=== PATIENT | female | born 1990 | race Caucasian/White ===

== ENCOUNTER 2024-09-21 09:07 | Outpatient (RCR) | payer OTHER, SELFPAY ==
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
[2024-09-21 11:14] LABS: Hematocrit 36.6 % (37.0-47.0); Hemoglobin 12.2 g/dL (12.0-15.0)
[2024-09-21 11:38] LABS: Glucose 1 Hour PP 50gm Dose 99 mg/dL
[2024-09-21 12:04] LABS: Syphilis IgG/IgM Antibody Non-Reactive (Nonreactive)
[2024-09-21 12:19] LABS: HIV 1/2 Ab P24 Ag Result Negative (Negative)
[2024-09-21] MEDS: RHO(D) IMMUNE GLOBULIN 300 MCG/2 ML SYRINGE IM (16:12)
[2024-09-22 12:08] LABS: Lead, Blood (Adult) <1.0 ug/dL (0.0-3.4)
== END 2024-12-20 23:59 | disposition home or self-care (01) ==
LOC: ANHLAB 09:07
PROVIDERS: PCP Physician Assistant; Visit Provider Advanced Practice Midwife
DX: Z11.4 Encounter for screening for human immunodeficiency virus [HIV] (principal); Z11.3 Encounter for screening for infections with a predominantly sexual mode of transmission; Z29.13 Encounter for prophylactic Rho(D) immune globulin; O36.0130 Maternal care for anti-D [Rh] antibodies, third trimester, not applicable or unspecified; Z3A.00 Weeks of gestation of pregnancy not specified
CPT/HCPCS: 36415; 82947; 83655; 85014; 85018; 85461; 86593; 86703; 86850; 86900; 86901; 90384; 96372; G0432; J2790

== ENCOUNTER 2024-12-13 07:29 | Inpatient (IN) | payer BC, OTHER, SELFPAY ==
[2024-12-13] VITALS (55 sets, daily range): BP systolic 94–151; BP diastolic 62–123; PULSE 52–103; RESP 18–20; TEMP 36.2–37; O2SAT 96–100; BMI 33.8
--- OUTSIDE RECORDS SUMMARY | 2024-12-13 07:44 | XMS_ITS | Clinical Summary ---
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
--- OUTSIDE RECORDS SUMMARY | 2024-12-13 07:45 | XMS_ITS | Data Portability ---
Author Organization [facility] Address [address] [place] [place] [address] [place] [address] Assessment Encounter Date Assessment Date Assessment LastModified by Organization Details LastModified Time 11/21/2024 11/21/2024 Patient is _36__weeks . Discussed plan. Not available 11/21/2024 13:58:01 11/28/2024 11/28/2024 Patient is _37__weeks . Discussed plan. Not available 11/28/2024 11:01:54 12/05/2024 12/05/2024 Patient is _38__weeks . Discussed plan. Not available 12/05/2024 11:04:10 12/12/2024 12/12/2024 Patient is _39__weeks . Discussed plan. Not available 12/12/2024 10:48:29 Plan of Treatment Reminders Order Date Submit Date Provider Last Modified By Organization Details Last Modified Time Details Appointments INDUCTION 2024 05:00A M Stacy Dotson CNM Not available Not available Not available Lab None recorded. Referral None recorded. Procedures None recorded. Surgeries None recorded. Imaging non-stres s test 2024 025 [email or web address], [address], [place], [address], 12/05/2024 11:37:44 Medication Orders None recorded. Patient TargetsNo targets recorded. Patient InstructionsNo instructions recorded. Reason for Referral None Reported. Results Created Date Observation Date Name Description Value Unit Range Abnormal Flag Note LastModifiedBy Organization Detail LastModifiedTime 11/02/1911/01/2024 CBC W/DIF F WBC 10.9 10'3/ uL 3.5-10 .5 high Not Available [facility] (Lab) [address], [place], [address], 11/02/2024 07:00:59 11/02/19 25 11/01/2024 CBC W/DIF F RBC 4.20 10'6/ uL (based on docume nted legal sex) 3.80-5 .20 Not Available [facility] (Lab) [address], [place], [address], 11/02/2024 07:00:59 11/02/1911/01/2024 CBC W/DIF F HGB 12.4 g/dL (based on docume nted legal sex) 11.6-1 5.4 Not Available [facility] (Lab) [address], [place], [address], 11/02/2024 07:00:59 11/02/1911/01/2024 CBC W/DIF F HCT 38.3 % (based on docume nted legal sex) 34.0-4 5.0 Not Available [facility] (Lab) [address], [place], [address], 11/02/2024 07:00:59 11/02/1911/01/2024 CBC W/DIF F MCV 91.2 fL 80.0-9 9.0 Not Available [facility] (Lab) [address], [place], [address], 11/02/2024 07:00:59 11/02/1911/01/2024 CBC W/DIF F MCH 29.5 pg 27.0-3 4.0 Not Available [facility] (Lab) [address], [place], [address], 11/02/2024 07:00:59 11/02/1911/01/2024 CBC W/DIF F MCHC 32.4 g/dL 32.0-3 5.5 Not Available [facility] (Lab) [address], [place], [address], 11/02/2024 07:00:59 11/02/1911/01/2024 CBC W/DIF F RDW 13.0 % 11.0-1 5.0 Not Available [facility] (Lab) [address], [place], [address], 11/02/2024 07:00:59 11/02/1911/01/2024 CBC W/DIF F plt 176 10'3/ uL 150-40 0 Not Available [facility] (Lab) [address], [place], [address], 11/02/2024 07:00:59 11/02/1911/01/2024 CBC W/DIF F MPV 11.9 fL 8.8-12 .1 Not Available [facility] (Lab) [address], [place], [address], 11/02/2024 07:00:59 11/02/1911/01/2024 CBC W/DIF F NRBC's 0.0 % 0.0 Not Available [facility] (Lab) [address], [place], [address], 11/02/2024 07:00:59 11/02/1911/01/2024 CBC W/DIF F absolute NRBCs 0.0 10'3/ uL no refere nce range establ ished Not Available [facility] (Lab) [address], [place], [address], 11/02/2024 07:00:59 11/02/1911/01/2024 CBC W/DIF F neutrophils 72.5 % 34.0-7 3.0 Not Available [facility] (Lab) [address], [place], [address], 11/02/2024 07:00:59 11/02/19 25 11/01/2024 CBC W/DIF F lymphocytes 20.6 % 15.0-5 0.0 Not Available [facility] (Lab) [address] [facility], [place], [address], 11/02/2024 07:00:59 11/02/1911/01/2024 CBC W/DIF F monocytes 5.9 % 1.0-15 .0 Not Available [facility] (Lab) [address] [facility], [place], [address], 11/02/2024 07:00:59 11/02/1911/01/2024 CBC W/DIF F eosinophils 0.4 % 0.0-8. 0 Not Available [facility] (Lab) [address] [facility], [place], [address], 11/02/2024 07:00:59 11/02/1911/01/2024 CBC W/DIF F basophils 0.3 % 0.0-2. 0 Not Available [facility] (Lab) [address] [facility], [place], [address], 11/02/2024 07:00:59 11/02/1911/01/2024 CBC W/DIF F immature granulocytes 0.3 % no define d refere nce range Immat ure Granu locyt es (IG) repre sents autom ated enume ratio n of Metam yeloc ytes, Myelo cytes and Promy elocy jade when IG is < 5%. Blast s are not inclu ded in IG and repor earl separ ately if prese nt. Not Available [facility] (Lab) [address] [facility], [place], [address], 11/02/2024 07:00:59 11/02/1911/01/2024 CBC W/DIF F absolute neutrophils 7.9 10'3/ uL 1.5-8. 0 Not Available [facility] (Lab) [address] [facility], [place], [address], 11/02/2024 07:00:59 11/02/1911/01/2024 CBC W/DIF F absolute lymphocytes 2.2 10'3/ uL 1.0-4. 0 Not Available [facility] (Lab) [address] , [place], [address], 11/02/2024 07:00:59 11/02/1911/01/2024 CBC W/DIF F absolute monocytes 0.6 10'3/ uL 0.2-1. 0 Not Available [facility] (Lab) [address], [place], [address], 11/02/2024 07:00:59 11/02/1911/01/2024 CBC W/DIF F absolute eosinophils 0.0 10'3/ uL 0.0-0. 6 Not Available [facility] (Lab) [address], [place], [address], 11/02/2024 07:00:59 11/02/1911/01/2024 CBC W/DIF F absolute basophils 0.0 10'3/ uL 0.0-0. 3 Not Available [facility] (Lab) [address] [facility], [place], [address], 11/02/2024 07:00:59 11/02/1911/01/2024 CBC W/DIF F absolute immature granulocytes 0.0 10'3/ uL 0.00-0 .10 Refer ence range s for nonbi nary/ inter sex or unspe cifie d gende r patie nts have not been estab lishe d. Pleas e refer to the follo wing table for range s estab lishe d for cisge nder patie nts and evalu ate in the clini bailey blanca xt of the indiv idual patie nt: https ://milan rodriguez book. nm.or g/gen derx Not Available [facility] (Lab) [address], [place], [address], 11/02/2024 07:00:59 11/17/1911/16/2024 CULTU RE: GROUP B STREP SCREE N, REFLE X SUSCE PTIBI LITY result report SEE RESULT S BELOW Test: Cultu re: Group B Strep , Refle x Susce ptibi lity ([facility]/ [facility]/K H/V[facility] ) Speci men Sourc e: Vagin a/Rec candelario Speci men Type: Vagin al/Re ctal Speci men Date: 2024 0957 Resul t Date: 2024 1413 Resul t Statu s: Final resul t Abnor mal: No Resul ting Lab: [facility] [address] [facility] [address] Tel: CULTU RE ----- ----- ----- --- No Group B strep isola earl at 2 days (eugenio ctive broth enhan cemen t) Not Available [facility] (Lab) [address] [facility], [place], [address], 11/19/2024 15:16:24 11/22/1911/21/2024 CBC W/DIF F WBC 10.2 10'3/ uL 3.5-10 .5 Not Available [facility] (Lab) [address] [place], [address], 11/22/2024 04:31:46 11/22/1911/21/2024 CBC W/DIF F RBC 4.07 10'6/ uL (based on docume nted legal sex) 3.80-5 .20 Not Available [facility] (Lab) [address] [place], [address], 11/22/2024 04:31:46 11/22/1911/21/2024 CBC W/DIF F HGB 12.0 g/dL (based on docume nted legal sex) 11.6-1 5.4 Not Available [facility] (Lab) [address] [place], [address], 11/22/2024 04:31:46 11/22/19 11/21/2024 CBC W/DIF F HCT 36.7 % (based on docume nted legal sex) 34.0-4 5.0 Not Available [facility] (Lab) [address], [place], [address], 11/22/2024 04:31:46 11/22/19 25 11/21/2024 CBC W/DIF F MCV 90.2 fL 80.0-9 9.0 Not Available [facility] (Lab) [address], [place], [address], 11/22/2024 04:31:46 11/22/1911/21/2024 CBC W/DIF F MCH 29.5 pg 27.0-3 4.0 Not Available [facility] (Lab) [address], [place], [address], 11/22/2024 04:31:46 11/22/19 25 11/21/2024 CBC W/DIF F MCHC 32.7 g/dL 32.0-3 5.5 Not Available [facility] (Lab) [address], [place], [address], 11/22/2024 04:31:46 11/22/19 25 11/21/2024 CBC W/DIF F RDW 13.0 % 11.0-1 5.0 Not Available [facility] (Lab) [address], [place], [address], 11/22/2024 04:31:46 11/22/1911/21/2024 CBC W/DIF F plt 173 10'3/ uL 150-40 0 Not Available [facility] (Lab) [address], [place], [address], 11/22/2024 04:31:46 11/22/19 25 11/21/2024 CBC W/DIF F MPV 12.3 fL 8.8-12 .1 high Not Available [facility] (Lab) [address], [place], [address], 11/22/2024 04:31:46 11/22/19 25 11/21/2024 CBC W/DIF F NRBC's 0.0 % 0.0 Not Available [facility] (Lab) [address] [facility], [place], [address], 11/22/2024 04:31:46 11/22/19 25 11/21/2024 CBC W/DIF F absolute NRBCs 0.0 10'3/ uL no refere nce range establ ished Not Available [facility] (Lab) [address] [facility], [place], [address], 11/22/2024 04:31:46 11/22/19 25 11/21/2024 CBC W/DIF F neutrophils 70.4 % 34.0-7 3.0 Not Available [facility] (Lab) [address] [facility], [place], [address], 11/22/2024 04:31:46 11/22/19 25 11/21/2024 CBC W/DIF F lymphocytes 22.5 % 15.0-5 0.0 Not Available [facility] (Lab) [address] [facility], [place], [address], 11/22/2024 04:31:46 11/22/19 25 11/21/2024 CBC W/DIF F monocytes 6.0 % 1.0-15 .0 Not Available [facility] (Lab) [address] [facility], [place], [address], 11/22/2024 04:31:46 11/22/19 25 11/21/2024 CBC W/DIF F eosinophils 0.5 % 0.0-8. 0 Not Available [facility] (Lab) [address] [facility], [place], [address], 11/22/2024 04:31:46 11/22/19 25 11/21/2024 CBC W/DIF F basophils 0.2 % 0.0-2. 0 Not Available [facility] (Lab) [address] [facility], [place], [address], 11/22/2024 04:31:46 11/22/1911/21/2024 CBC W/DIF F immature granulocytes 0.4 % no define d refere nce range Immat ure Granu locyt es (IG) repre sents autom ated enume ratio n of Metam yeloc ytes, Myelo cytes and Promy elocy jade when IG is < 5%. Blast s are not inclu ded in IG and repor earl separ ately if prese nt. Not Available [facility] (Lab) [address] [facility], [place], [address], 11/22/2024 04:31:46 11/22/19 25 11/21/2024 CBC W/DIF F absolute neutrophils 7.2 10'3/ uL 1.5-8. 0 Not Available [facility] (Lab) [address] [facility], [place], [address], 11/22/2024 04:31:46 11/22/19 25 11/21/2024 CBC W/DIF F absolute lymphocytes 2.3 10'3/ uL 1.0-4. 0 Not Available [facility] (Lab) [address] [facility], [place], [address], 11/22/2024 04:31:46 11/22/19 25 11/21/2024 CBC W/DIF F absolute monocytes 0.6 10'3/ uL 0.2-1. 0 Not Available [facility] (Lab) [address] [facility], [place], [address], 11/22/2024 04:31:46 11/22/19 25 11/21/2024 CBC W/DIF F absolute eosinophils 0.1 10'3/ uL 0.0-0. 6 Not Available [facility] (Lab) [address] [facility], [place], [address], 11/22/2024 04:31:46 11/22/19 25 11/21/2024 CBC W/DIF F absolute basophils 0.0 10'3/ uL 0.0-0. 3 Not Available [facility] (Lab) [address], [place], [address], 11/22/2024 04:31:46 11/22/19 25 11/21/2024 CBC W/DIF F absolute immature granulocytes 0.0 10'3/ uL 0.00-0 .10 Refer ence range s for nonbi nary/ inter sex or unspe cifie d gende r patie nts have not been estab lishe d. Pleas e refer to the follo wing table for range s estab lishe d for cisge nder patie nts and evalu ate in the clini bailey blanca xt of the indiv idual patie nt: https ://milan rodriguez book. nm.or g/gen derx Not Available [facility] (Lab) [address], [place], [address], 11/22/2024 04:31:46 12/06/1912/05/2024 CBC W/DIF F WBC 9.4 10'3/ uL 3.5-10 .5 Not Available [facility] (Lab) [address], [place], [address], 12/06/2024 04:30:16 12/06/19 25 12/05/2024 CBC W/DIF F RBC 4.21 10'6/ uL (based on docume nted legal sex) 3.80-5 .20 Not Available [facility] (Lab) [address], [place], [address], 12/06/2024 04:30:16 12/06/19 25 12/05/2024 CBC W/DIF F HGB 12.1 g/dL (based on docume nted legal sex) 11.6-1 5.4 Not Available [facility] (Lab) [address], [place], [address], 12/06/2024 04:30:16 12/06/19 25 12/05/2024 CBC W/DIF F HCT 38.3 % (based on docume nted legal sex) 34.0-4 5.0 Not Available [facility] (Lab) [address], [place], [address], 12/06/2024 04:30:16 12/06/19 25 12/05/2024 CBC W/DIF F MCV 91.0 fL 80.0-9 9.0 Not Available [facility] (Lab) [address], [place], [address], 12/06/2024 04:30:16 12/06/19 25 12/05/2024 CBC W/DIF F MCH 28.7 pg 27.0-3 4.0 Not Available [facility] (Lab) [address], [place], [address], 12/06/2024 04:30:16 12/06/19 25 12/05/2024 CBC W/DIF F MCHC 31.6 g/dL 32.0-3 5.5 low Not Available [facility] (Lab) [address], [place], [address], 12/06/2024 04:30:16 12/06/19 25 12/05/2024 CBC W/DIF F RDW 13.0 % 11.0-1 5.0 Not Available [facility] (Lab) [address], [place], [address], 12/06/2024 04:30:16 12/06/19 25 12/05/2024 CBC W/DIF F plt 165 10'3/ uL 150-40 0 Not Available [facility] (Lab) [address], [place], [address], 12/06/2024 04:30:16 12/06/19 25 12/05/2024 CBC W/DIF F MPV 12.0 fL 8.8-12 .1 Not Available [facility] (Lab) [address], [place], [address], 12/06/2024 04:30:16 12/06/19 25 12/05/2024 CBC W/DIF F NRBC's 0.0 % 0.0 Not Available [facility] (Lab) [address] [facility], [place], [address], 12/06/2024 04:30:16 12/06/19 25 12/05/2024 CBC W/DIF F absolute NRBCs 0.0 10'3/ uL no refere nce range establ ished Not Available [facility] (Lab) [address] [facility], [place], [address], 12/06/2024 04:30:16 12/06/19 25 12/05/2024 CBC W/DIF F neutrophils 67.7 % 34.0-7 3.0 Not Available [facility] (Lab) [address] [facility], [place], [address], 12/06/2024 04:30:16 12/06/19 25 12/05/2024 CBC W/DIF F lymphocytes 24.6 % 15.0-5 0.0 Not Available [facility] (Lab) [address] [facility], [place], [address], 12/06/2024 04:30:16 12/06/19 25 12/05/2024 CBC W/DIF F monocytes 6.6 % 1.0-15 .0 Not Available [facility] (Lab) [address] [facility], [place], [address], 12/06/2024 04:30:16 12/06/19 25 12/05/2024 CBC W/DIF F eosinophils 0.6 % 0.0-8. 0 Not Available [facility] (Lab) [address] [facility], [place], [address], 12/06/2024 04:30:16 12/06/19 25 12/05/2024 CBC W/DIF F basophils 0.3 % 0.0-2. 0 Not Available [facility] (Lab) [address] [facility], [place], [address], 12/06/2024 04:30:16 12/06/19 25 12/05/2024 CBC W/DIF F immature granulocytes 0.2 % no define d refere nce range Immat ure Granu locyt es (IG) repre sents autom ated enume ratio n of Metam yeloc ytes, Myelo cytes and Promy elocy jade when IG is < 5%. Blast s are not inclu ded in IG and repor earl separ ately if prese nt. Not Available [facility] (Lab) [address] [facility], [place], [address], 12/06/2024 04:30:16 12/06/19 25 12/05/2024 CBC W/DIF F absolute neutrophils 6.4 10'3/ uL 1.5-8. 0 Not Available [facility] (Lab) [address] [facility], [place], [address], 12/06/2024 04:30:16 12/06/19 25 12/05/2024 CBC W/DIF F absolute lymphocytes 2.3 10'3/ uL 1.0-4. 0 Not Available [facility] (Lab) [address] [facility], [place], [address], 12/06/2024 04:30:16 12/06/19 25 12/05/2024 CBC W/DIF F absolute monocytes 0.6 10'3/ uL 0.2-1. 0 Not Available [facility] (Lab) [address] [facility], [place], [address], 12/06/2024 04:30:16 12/06/19 25 12/05/2024 CBC W/DIF F absolute eosinophils 0.1 10'3/ uL 0.0-0. 6 Not Available [facility] (Lab) [address] [facility], [place], [address], 12/06/2024 04:30:16 12/06/19 25 12/05/2024 CBC W/DIF F absolute basophils 0.0 10'3/ uL 0.0-0. 3 Not Available [facility] (Lab) [address] [facility], [place], [address], 12/06/2024 04:30:16 12/06/19 25 12/05/2024 CBC W/DIF F absolute immature granulocytes 0.0 10'3/ uL 0.00-0 .10 Refer ence range s for nonbi nary/ inter sex or unspe cifie d gende r patie nts have not been estab lishe d. Pleas e [facility] for range s estab lishe d for cisge nder patie nts and evalu ate in the clini bailey blanca xt of the indiv idual patie nt: https ://milan rodriguez book. nm.or g/gen derx Not Available [facility] (Lab) [address] [facility], [place], [address], 12/06/2024 04:30:16 12/06/19 25 12/05/2024 CMP(C OMPRE HENSI VE METAB OLIC PANEL ) sodium 138 mmol/ L 133-14 6 Not Available [facility] (Lab) [address] [facility], [place], [address], 12/06/2024 04:30:17 12/06/19 25 12/05/2024 CMP(C OMPRE HENSI VE METAB OLIC PANEL ) potassium 3.7 mmol/ L 3.5-5. 1 Not Available [facility] (Lab) [address] [facility], [place], [address], 12/06/2024 04:30:17 12/06/19 25 12/05/2024 CMP(C OMPRE HENSI VE METAB OLIC PANEL ) chloride 105 mmol/ L 98-107 Not Available [facility] (Lab) [address] [facility], [place], [address], 12/06/2024 04:30:17 12/06/19 25 12/05/2024 CMP(C OMPRE HENSI VE METAB OLIC PANEL ) carbon dioxide 23 mmol/ L 21-31 Not Available [facility] (Lab) [address] [facility], [place], [address], 12/06/2024 04:30:17 12/06/19 25 12/05/2024 CMP(C OMPRE HENSI VE METAB OLIC PANEL ) anion gap 10 mmol/ L 4-13 Not Available [facility] (Lab) [address] [facility], [place], [address], 12/06/2024 04:30:17 12/06/19 25 12/05/2024 CMP(C OMPRE HENSI VE METAB OLIC PANEL ) blood urea nitrogen 5 mg/dL 7-25 low Not Available [facility] (Lab) [address] [facility], [place], [address], 12/06/2024 04:30:17 12/06/19 25 12/05/2024 CMP(C OMPRE HENSI VE METAB OLIC PANEL ) creatinine 0.61 mg/dL 0.60-1 .30 Not Available [facility] (Lab) [address] [facility], [place], [address], 12/06/2024 04:30:17 12/06/1912/05/2024 CMP(C OMPRE HENSI VE METAB OLIC PANEL ) egfrcr (CKD-epi 2020) >90 mL/mi n/1.7 3_m2 >=60 Not Available [facility] (Lab) [address] [place], [address], 12/06/2024 04:30:17 12/06/19 25 12/05/2024 CMP(C OMPRE HENSI VE METAB OLIC PANEL ) calcium 8.6 mg/dL 8.3-10 .5 Not Available [facility] (Lab) [address] [place], [address], 12/06/2024 04:30:17 12/06/19 25 12/05/2024 CMP(C OMPRE HENSI VE METAB OLIC PANEL ) glucose 63 mg/dL 70-100 low Not Available [facility] (Lab) [address] [place], [address], 12/06/2024 04:30:17 12/06/19 25 12/05/2024 CMP(C OMPRE HENSI VE METAB OLIC PANEL ) protein, total 5.8 g/dL 6.4-8. 3 low Not Available [facility] (Lab) [address] [facility], [place], [address], 12/06/2024 04:30:17 12/06/19 25 12/05/2024 CMP(C OMPRE HENSI VE METAB OLIC PANEL ) albumin 3.3 g/dL 3.5-5. 0 low Not Available [facility] (Lab) [address] [facility], [place], [address], 12/06/2024 04:30:17 12/06/19 25 12/05/2024 CMP(C OMPRE HENSI VE METAB OLIC PANEL ) ALT 9 units /L 9-43 Not Available [facility] (Lab) [address] [facility], [place], [address], 12/06/2024 04:30:17 12/06/1912/05/2024 CMP(C OMPRE HENSI VE METAB OLIC PANEL ) alkaline phosphatase 151 units /L 34-104 high Not Available [facility] (Lab) [address] [facility], [place], [address], 12/06/2024 04:30:17 12/06/19 25 12/05/2024 CMP(C OMPRE HENSI VE METAB OLIC PANEL ) AST 15 units /L 13-39 Not Available [facility] (Lab) [address] [facility], [place], [address], 12/06/2024 04:30:17 12/06/19 25 12/05/2024 CMP(C OMPRE HENSI VE METAB OLIC PANEL ) bilirubin, total 0.4 mg/dL 0.2-1. 2 Not Available [facility] (Lab) [address] [place], [address], 12/06/2024 04:30:17 12/06/19 25 12/05/2024 URIC ACID uric acid 5.5 mg/dL 2.3-6. 6 Not Available [facility] (Lab) [address] [facility], [place], [address], 12/06/2024 04:30:17 12/06/19 25 12/05/2024 PROTE IN/CR EATIN INE RATIO , URINE creatinine, urine 52.2 mg/dL R-No refer ence range estab lishe d for this assay Not Available [facility] (Lab) [address] [facility], [place], [address], 12/06/2024 05:07:25 12/06/19 25 12/05/2024 PROTE IN/CR EATIN INE RATIO , URINE protein, urine 7 mg/dL R-No refer ence range estab lishe d for this assay Not Available [facility] (Lab) [address] [facility], [place], [address], 12/06/2024 05:07:25 12/06/19 25 12/05/2024 PROTE IN/CR EATIN INE RATIO , URINE protein/crea tinine ratio, urine 0.13 . No Refer ence Range avail able for Rando m Urine s. A prote in to creat inine ratio of >=0.1 9 is a good predi ctor of signi fican t prote inuri a. A level of <0.14 can rule out signi fican t prote inuri a. Not Available [facility] (Lab) [address] [facility], [place], [address], 12/06/2024 05:07:25 12/06/1912/05/2024 non-s tress test No observ ation record ed. [email or web address] [address], [place], [address], 12/05/2024 11:45:15 12/06/19 non-s tress test No observ ation record ed. [email or web address] [address], [place], [address], 12/05/2024 12:17:27 Result Notes None recorded. Problems Name Problem SNOMED Code Status Onset Date Resolution Date Notes Provider Name and Address Organization Details Recorded Time Herpes simplex type 1 infection 833479589 Active 06/12 blood work neg HSV Jazzmine Pereyra [facility], [facility] 5 13:35:11 Mixed anxiety and depressive disorder 536070383 Active 2024 Diandra Harper null, [facility] 5 08:56:47 15532667 Active 2024 Diandra Harper [facility], [facility] 5 08:56:16 Herpes simplex type 1 infection 750641101 Active 06/12 blood work neg HSV Jazzmine Pereyra [facility], [facility] 5 13:35:11 Mixed anxiety and depressive disorder 113338246 Active 2024 Diandra Harper [facility], [facility] 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 5 13:53:57 Thrombocytope nelson disorder 303174807 Active 2024 PLT 148 rpt 4wks Jazzmine Pereyra [facility], [facility] 5 13:53:56 Problem Notes None recorded. Procedures Surgical History Date Name Laterality Status Provider Name and Address Organization Details Recorded Time 4 Date of Last Pap Smear completed Diandra Harper [facility] 06/12/2024 13:16:14 0 extraction of wisdom tooth completed Diandra Harper [facility] 06/13/2024 08:54:53 Imaging Results None recorded. Procedure Notes None recorded. Medical Equipment None Reported. Allergies Allergen ID Allergen Name Allergen Category Reaction Reaction Severity Criticality Documentation Date Start Date Code Code System Note Provider Name and Address Organization Details Recorded Time 15875 Substance with sulfonami de structure and antibacte rial mechanism of action (substanc e) medicatio n rash moderate Not available 06/12/2024 [id number] SNOMED Diandra rolon [facility] 13:16:14 Medications Name Sig Start Date Stop Date Status Note LastModified by Organization Details LastModified Time ondansetron 4 mg disintegrat ing tablet DISSOLVE 1 TABLET ON THE TONGUE FOUR TIMES DAILY NEEDED FOR NAUSEA OR VOMITING 07/04 completed Not Available Not Available Not Available escitalopra m 10 mg tablet TAKE 1 TABLET BY MOUTH EVERY DAY active Not Available Not Available No t Available escitalopra m 5 mg tablet TAKE 1 TABLET BY MOUTH EVERY DAY 08/22 completed Not Available Not Available Not Available 08/22 completed Not Available Not Available Not Available Zofran (base) 06/12 completed Not Available Not Available Not Available Se- 19 29 mg iron-1 mg tablet TAKE 1 TABLET BY MOUTH DAILY active Not Available Not Available No t Available Vitals Date Recorded Body height Body mass index (BMI) Body weight Systolic And Diastolic Provider Name and Address Organization Details Last Updated DateTime 11/21/2024 170.18 cm 34.8 kg/m2 541806.51 g 114/74 mm[Hg] Blanka [facility] 11/21/2024 11:34:51 Date Recorded Body height Body mass index (BMI) Body weight Systolic And Diastolic Provider Name and Address Organization Details Last Updated DateTime 11/28/2024 170.18 cm 34.8 kg/m2 142051.51 g 134/88 mm[Hg] Blanka [facility] 11/28/2024 10:51:03 Date Recorded Body height Body mass index (BMI) Body weight Systolic And Diastolic Provider Name and Address Organization Details Last Updated DateTime 12/05/2024 170.18 cm 34.8 kg/m2 460314.51 g 141/80 mm[Hg] Blanka Maribell [facility] 12/05/2024 10:50:48 Date Recorded Body weight Systolic And Diastolic Provider Name and Address Organization Details Last Updated DateTime 12/12/2024 410534.53134 g 118/81 mm[Hg] Imelda Sarkar [facility] 12/12/2024 10:48:32 Social History Question Answer Notes LastModified by Organizat ion Details LastModified Time Tobacco Smoking Status Former Smoker Diandra Meredith null, [facility] 06/13/2024 08:54:00 Do You Have An Advance Directive? No [email or web address] Information not available 06/12/2024 If You Are , What Was Your Level Of Alcohol Consumption Prior To ? Occasional [email or web address] Information not available 06/13/2024 Are You Blind Or Do You Have Difficulty Seeing? No [email or web address] Information not available 06/12/2024 What Is Your Level Of Caffeine Consumption? Occasional [email or web address] Information not available 06/12/2024 How Much Tobacco Do You Chew? None Information not available 06/12/2024 In The 14 Days Before Symptom Onset, Have You Had Close Contact With A Laboratory-confir med COVID-19 While That Case Was Ill? No [email or web address] Information not available 06/12/2024 In The 14 Days Before Symptom Onset, Have You Had Close Contact With A Person Who Is Under Investigation For COVID-19 While That Person Was Ill? No [email or web address] Information not available 06/12/2024 Have You Been To An Area Known To Be High Risk For COVID-19? No Information not available 06/12/2024 Are You Deaf Or Do You Have Serious Difficulty Hearing? No [email or web address] Information not available 06/12/2024 What Type Of Diet Are You Following? REGULAR [email or web address] Information not available 06/12/2024 What Is The Highest Grade Or Level Of School You Have Completed Or The Highest Degree You Have Received? [id number] [email or web address] Information not available 06/12/2024 Are There Any Guns Present In Your Home? Yes Information not available 06/12/2024 Do You Use Protection During Sex? No Information not available 06/12/2024 Do You Use Your Seat Belt Or Car Seat Routinely? Yes [email or web address] Information not available 06/12/2024 Do You Have Smoke And Carbon Monoxide Detectors In Your Home? Yes [email or web address] Information not available 06/12/2024 How Much Tobacco Do You Smoke? No [email or web address] Information not available 06/12/2024 Do You Use Sunscreen Routinely? Yes [email or web address] Information not available 06/12/2024 Have You Used IV Drugs? No [email or web address] Information not available 06/12/2024 Do You Have Difficulty Walking Or Climbing Stairs? No [email or web address] Information not available 06/13/2024 Sex: Unknown Functional Status Question Answer Note LastModified by Organizat ion Details LastModified Time Do you use any illicit or recreational drugs? No marijauna [email or web address] Information not available 06/13/2024 Do you or have you ever used any other forms of tobacco or nicotine? Yes Information not available 06/13/2024 What is your level of alcohol consumption? None [email or web address] Information not available 06/12/2024 Are you able to walk independently without assistance or assistive devices? YESWOREST [email or web address] Information not available 06/12/2024 Are you able to care for yourself independently? 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 No [email or web address] Information not available 06/13/2024 Do you or have you ever used e-cigarettes or vape? Former user of electronic cigarettes [email or web address] Information not available 06/13/2024 What is your exercise level? Moderate [email or web address] Information not available 06/12/2024 Mental Status Question Answer Note LastModified by Organization D etails LastModified Time Do you feel stressed (tense, restless, nervous, or anxious, or unable to sleep at night)? [id number] [email or web address] Information not available 06/12/2024 Family History Relationship Description Onset Age of this Age Resolved Age Notes LastModified by Organization Details LastModified Time Mother Asthma [email or web address] Not available 06/12/2024 13:16:14 Maternal Uncle Seizure disorder [email or web address] Not available 08/06 20:22:41 Medical History Condition Response Other N Blood Transfusion N Dermatologic Disorders N Gestational Diabetes N Anxiety Disorder Y Autoimmune disease N Arthritis N Polyps N Infertility N Acid Reflux (GERD) N Cancer N Varicosities N Stroke N Neurologic/Epilepsy N Fibromyalgia N Headaches N Kidney Disease N Heart Problems N Kidney or Bladder Problems N Eating Disorder N Art (IVF or FET) N Hepatitis/Liver Disease N No Past Medical History N Urinary Tract Infection N Asthma Y Trauma/Violence N Thrombophilias N Allergies (Food, seasonal, environmental ) Y Breast Cancer N Drug/Latex Allergies/Reactions N Lung Disease N Defects or Inherited Disease N Breast Problem N Hematologic disorders N Anesthesia Complications N History of STI Y Deep Vein Thrombosis N Polycystic ovary syndrome N History of abnormal pap N Endometriosis N High Cholesterol N Thyroid Problems N GI Problems N Anemia N Psychiatric Illness N Ovarian Cancer N Diabetes N Pulmonary (TB, Asthma) N Eczema N Abuse/Domestic Violence N Depression/ depression Y Heart Disease N Pre-Eclampsia N Hypertension N Osteoporosis N Gynecological History Statement/Question Response Abnormal Pap N Date of Last Mammogram Date of LMP 03/09/2024 On BCP's at Conception? N N Was last menstrual period normal Y STIs/STDs Y HPV Vaccine N Duration of Flow (days) 3 Current Control Method Age at First Child 24 Date of Last Colonoscopy Frequency of Cycle (Q days) 4 Sexually Active? Y Date of DEXA bone scan Age of first menstrual cycle 14 Date of Last Pap Smear 11/24/2023 Sexual Problems? N LMP Definite N Obstetrics History GPAL:G 4 P 2 0 1 1 Type Value Full Term 2 Spontaneous 1 Living 1 Total 4 Past Encounters Encounter ID Performer Location Encounter Start Date Encounter Closed Date Diagnosis/Indication Diagnosis SNOMED-CT Code Diagnosis ICD10 Code Diagnosis IMO Codes Diagnosis Note [id number] Vik Damian MD [facility] [address] [address] 06/12/2024 11:44:31 06/12/2024 12:43:55 screening for malformation 007228249 Z36.3 Z3A.13 [id number] [facility] [address],[place] [address] 06/12/2024 11:44:46 06/13/2024 09:49:54 state of fetus 18837506 Z34.90 [id number] Bacterial disease screening 010731214 Z11.8 15357 Gestation period, 13 weeks 27072723 Z3A.13 5754527 screening 2437 58606 Z36.89 Infection screening 2437 76606 Z11.3 7380032 Genetic in vestigation procedure 36050866 Z31.430 Amenorrhea 01319990 N91. 2 [id number] Stacy Dotson [facility] [address],[place] [address] 07/04/2024 09:53:48 07/04/2024 20:25:59 [id number] [facility] [address],[place] [address] 07/06/2024 09:17:22 07/06/2024 12:36:54 Gestation period, 18 weeks 68370325 Z3A.18 0732023 [id number] Vik Damian MD [facility] [address],[place] [address] 07/26/2024 09:31:22 07/26/2024 13:26:46 screening for malformation 010092419 Z36.3 Z3A.20 [id number] [facility] [address],[place] [address] 07/27/2024 10:24:45 07/27/2024 12:30:06 Gestation period, 21 weeks 15940017 Z3A.21 [id number] [id number] Vik Damian MD [facility] [address],[place] [address] 08/22/2024 10:29:59 08/22/2024 11:29:11 Follow-up encounter 480446249 Z36.2 Z3A.23 [id number] [facility] [address],[place] [address] 08/22/2024 10:31:50 08/22/2024 12:07:41 Thrombocytopenic disorder 675076374 D69.6 64983 Gestation period, 23 weeks 90645147 Z3A.23 8264015 [id number] Stacy Dotson [facility] [address],[place] [address] 09/21/2024 09:19:22 09/21/2024 10:19:31 Gestation period, 28 weeks 00560785 Z3A.28 3390452 [id number] NIGEL LIMON MD [facility] [address],[place] [address] 10/05/2024 12:35:12 10/05/2024 13:23:42 Thrombocytopenic disorder 575656483 D69.6 52739 - Plt 148 at new OB visit- repeat today Gestation period, 29 weeks 75807850 Z3A.29 5567595 [id number] Vik Damian MD [facility] [address],[place] [address] 10/19/2024 09:51:14 10/19/2024 10:20:40 Observational assessment 664992964 Z03.74 Z3A.31 8334023 [id number] [facility] [address],[place] [address] 10/19/2024 09:51:43 10/19/2024 10:44:34 Gestation period, 31 weeks 40470444 Z3A.31 8551472 [id number] Stacy Dotson [facility] [address],[place] [address] 11/01/2024 10:55:20 11/01/2024 11:19:22 Gestation period, 33 weeks 60955524 Z3A.33 5017394 [id number] Stacy Dotson [facility] [address],[place] [address] 11/16/2024 09:42:43 11/16/2024 10:36:56 Gestation period, 35 weeks 86202043 Z3A.35 7780351 [id number] Stacy Dotson [facility] [address],[place] [address] 11/21/2024 11:05:47 11/21/2024 14:06:10 Gestation period, 36 weeks 35840670 Z3A.36 4815587 [id number] Stacy Dotson [facility] [address],[place] [address] 11/28/2024 10:40:48 11/28/2024 13:53:50 Gestation period, 37 weeks 67943610 Z3A.37 0431210 [id number] Stacy Dotson [place] [address],[place] [address] 12/05/2024 10:41:20 12/05/2024 11:08:52 Gestation period, 38 weeks 46956112 Z3A.38 3225164 [id number] Stacy Dotson [facility] [address],[place] [address] 12/05/2024 10:56:56 12/05/2024 11:37:44 Reduced movement 317202036 O36.8130 [id number] [id number] Stacy Dotson [place] [address],[place] [address] 12/12/2024 10:37:17 12/12/2024 11:17:25 Gestation period, 39 weeks 22325722 Z3A.39 [id number] Health Concerns Section Related Observation LastModified by Organization Detai ls LastModified Time None Recorded Concern Status LastModified by Organization Details LastModified Time None Recorded Advance Directives Directive N: Payers Insurance Date Sequence Insurance Name Policy Number Policy Ruiz Covered Member ID Ruiz Member ID Guarantor Name 06/15/2024 1 [facility] [id number] Sonido Snow [id number] Milagros Snow 12/09/2024 1 [facility] [id number] Milagros Snow [id number] Milagros Snow 08/29/2024 1 *SELF PAY* Porfirio Snow 12/09/2024 2 [id number] Milagros Snow [id number] Milagros Snow 10/05/2024 1 *SELF PAY* Porfirio Snow Notes Date Note Type Note Provider Name and Address Organization Details Recorded Time 11/21/2024 text/html Generic HPI TemplateReported by Patient Stacy Dotson CNM [address], [place], [address], [facility] 11/21/2024 13:58:18 11/28/2024 text/html Generic HPI TemplateReported by Patient Stacy Dotson CNM [address], [place], [address], [facility] 11/28/2024 13:42:00 12/05/2024 text/html Generic HPI TemplateReported by Patient Stacy Dotson CNM [address], [place], [address], [facility] 12/05/2024 11:04:25 12/12/2024 text/html Generic HPI TemplateReported by Patient Stacy Dotson CNM [address], [place], [address], [facility] 12/12/2024 10:55:37 OBGyn Episode Ob Episode Information Episode Created Date Number of Fetuses Patient Bloodtype Patient rh Status Prepregnancy Weight lbs Domestic Partner Domestic Partner Phone Father Name Area Intelligence Technician Status 06/14/19 25 1 CLOSED Fetus Data First Name Last Name Admitted to NICU Weight (g) Sex Living Outcome Pediatric Complications Fetus ID Race Codes Race Delivery Type , Spontane ous [id number] Colt Calculation Initial Colt Date Initial Exam Date Initial Exam Provider Initial Ultrasound Date Last Menstrual Period Date Ultra Sound Weeks Gestation 0 Eighteen To Twenty Week Colt Update Ultra Sound Date Fundal Height At Umbil Quickening Date Ultra Sound Latest Weeks Gestation Final Colt Confirmed By Final Colt Confirmed Date Final Colt Date Ultra Sound Latest Days Gestation 0 0 Menstrual History Last Menstrual Date Menses Monthly On Bcp Conception Prior Menses Frequency Hcg Plus Date Menarche Onset Age Delivery Information Delivery Date Delivery Type Labor Anesthesia Weeks Gestation Incision Type Labor Labor Length Hrs Delivered By Post Complications Tubal Sterilization Discharge Date Comments Discharge Information Feeding Method Contraceptive Method Maternal HG B and HCT Levels Ob Episode Information Episode Created Date Number of Fetuses Patient Bloodtype Patient rh Status Prepregnancy Weight lbs Domestic Partner Domestic Partner Phone Father Name Area Intelligence Technician Status 06/14/19 25 1 O Negative 205 Sonido Gibson son OPEN Fetus Data First Name Last Name Admitted to NICU Weight (g) Sex Living Outcome Pediatric Complications Fetus ID Race Codes Race Delivery Type [id number] Problems Problem Notes 2014 - at age 9 from heart attack Problem Name Start Date End Date Resolution Snomed Code Not e Herpes simplex type 1 infection 06/13/2024 [id number] 06/12 blood work neg HSV Thrombocytopenic disorder 06/18/2024 302 055864 PLT 148 rpt 4wks Mixed anxiety and depressive disorder 06/13/2024 914599000 Colt Calculation Initial Colt Date Initial Exam Date Initial Exam Provider Initial Ultrasound Date Last Menstrual Period Date Ultra Sound Weeks Gestation 12/14/2024 06/13/2024 [email or web address] 06/12/2024 03/09/2024 14 Eighteen To Twenty Week Colt Update Ultra Sound Date Fundal Height At Umbil Quickening Date Ultra Sound Latest Weeks Gestation Final Colt Confirmed By Final Colt Confirmed Date Final Colt Date Ultra Sound Latest Days Gestation 0 07/27/2024 12/16/19 25 0 Pre-july Flowsheet Flowsheet Date 06/12/2024 Kang Score Blood Edema Fundus Height Fundus Units Glucose Ketones Leukocytes Nitrite Labor Signs Protein Cervic Dilation Cervic Effacement Cervic Station neg none none trace Type Weight in lbs Pre/Post Dialysis Refused 205.673373769744 BP Diastolic BP Location Tested BP Systolic BP Type 83 132 Fetus Heart Rate Present Fetus Movement A No Comments Patient states that is havin g some nausea. Flowsheet Date 07/04/2024 Kang Score Blood Edema Fundus Height Fundus Units Glucose Ketones Leukocytes Nitrite Labor Signs Protein Cervic Dilation Cervic Effacement Cervic Station neg trace Type Weight in lbs Pre/Post Dialysis Refused 208.966883836716 BP Diastolic BP Location Tested BP Systolic BP Type 77 117 Fetus Heart Rate Present Fetus Movement A Yes Comments Patient has had some swellin g. Flowsheet Date 07/06/2024 Kang Score Blood Edema Fundus Height Fundus Units Glucose Ketones Leukocytes Nitrite Labor Signs Protein Cervic Dilation Cervic Effacement Cervic Station trace Type Weight in lbs Pre/Post Dialysis Refused Weight 208.223374862806 BP Diastolic BP Location Tested BP Systolic BP Type 70 113 Fetus Heart Rate Present A 145 Present Fetus Movement A Yes Comments Patient is having swelling. rescheduled from sp being out. +FM, seeing zee for anxiety/depression 10 mg lexapro daily, doing ok, is being nice but giving her space, may be at next visit. +FM education and precautions schedule anatomy Flowsheet Date 07/26/2024 Kang Score Blood Edema Fundus Height Fundus Units Glucose Ketones Leukocytes Nitrite Labor Signs Protein Cervic Dilation Cervic Effacement Cervic Station Type Weight in lbs Pre/Post Dialysis Refused BP Diastolic BP Location Tested BP Systolic BP Type Fetus Heart Rate Present Fetus Movement Comments Flowsheet Date 07/27/2024 Kang Score Blood Edema Fundus Height Fundus Units Glucose Ketones Leukocytes Nitrite Labor Signs Protein Cervic Dilation Cervic Effacement Cervic Station neg trace Type Weight in lbs Pre/Post Dialysis Refused Weight 211.338795606770 BP Diastolic BP Location Tested BP Systolic BP Type 76 110 Fetus Heart Rate Present A 148 Present Fetus Movement A Yes Comments Patient is having some pain and swelling. +FM education and precautions . will adjust due date according to first us, copy in chart, edc now 12/15/24. f/u 4 weeks Flowsheet Date 08/22/2024 Kang Score Blood Edema Fundus Height Fundus Units Glucose Ketones Leukocytes Nitrite Labor Signs Protein Cervic Dilation Cervic Effacement Cervic Station Type Weight in lbs Pre/Post Dialysis Refused BP Diastolic BP Location Tested BP Systolic BP Type Fetus Heart Rate Present Fetus Movement Comments Flowsheet Date 08/22/2024 Kang Score Blood Edema Fundus Height Fundus Units Glucose Ketones Leukocytes Nitrite Labor Signs Protein Cervic Dilation Cervic Effacement Cervic Station Type Weight in lbs Pre/Post Dialysis Refused Weight 214.048172298293 BP Diastolic BP Location Tested BP Systolic BP Type 68 L arm 102 sitting Fetus Heart Rate Present Fetus Movement A Yes Comments seeing zee for follow up n ext week, doing ok, +FM, anatomy complete, check plt today efw 80% f/u 4 weeks with gct Flowsheet Date 09/21/2024 Kang Score Blood Edema Fundus Height Fundus Units Glucose Ketones Leukocytes Nitrite Labor Signs Protein Cervic Dilation Cervic Effacement Cervic Station Type Weight in lbs Pre/Post Dialysis Refused Weight 218.067196086673 BP Diastolic BP Location Tested BP Systolic BP Type 76 L arm 110 sitting Fetus Heart Rate Present A 139 Present Fetus Movement A Yes Comments +FM doing gct today, precaut ions and education start 2 week appt, f/u 2 weeks Flowsheet Date 10/05/2024 Kang Score Blood Edema Fundus Height Fundus Units Glucose Ketones Leukocytes Nitrite Labor Signs Protein Cervic Dilation Cervic Effacement Cervic Station Type Weight in lbs Pre/Post Dialysis Refused Weight 220.671377970249 BP Diastolic BP Location Tested BP Systolic BP Type 81 L arm 135 sitting Fetus Heart Rate Present A 145 Fetus Movement A Yes Comments Doing well, good movem ent. No cramping or bleeding. Some BH contractions. Passed GCT and normal Hgb. Received Rhogam. Repeat Plt today for hx of thrombocytopenia. Flowsheet Date 10/19/2024 Kang Score Blood Edema Fundus Height Fundus Units Glucose Ketones Leukocytes Nitrite Labor Signs Protein Cervic Dilation Cervic Effacement Cervic Station Type Weight in lbs Pre/Post Dialysis Refused BP Diastolic BP Location Tested BP Systolic BP Type Fetus Heart Rate Present Fetus Movement Comments Flowsheet Date 10/19/2024 Kang Score Blood Edema Fundus Height Fundus Units Glucose Ketones Leukocytes Nitrite Labor Signs Protein Cervic Dilation Cervic Effacement Cervic Station Type Weight in lbs Pre/Post Dialysis Refused Weight 222.0007523649 BP Diastolic BP Location Tested BP Systolic BP Type 80 L arm 120 sitting Fetus Heart Rate Present Fetus Movement A Yes Comments us efw 67%, tdap and rhogam done. education and precautions rpt labs next visit f/u 2 weeks Flowsheet Date 11/01/2024 Kang Score Blood Edema Fundus Height Fundus Units Glucose Ketones Leukocytes Nitrite Labor Signs Protein Cervic Dilation Cervic Effacement Cervic Station Type Weight in lbs Pre/Post Dialysis Refused Weight 217.413912474568 BP Diastolic BP Location Tested BP Systolic BP Type 73 L arm 109 sitting Fetus Heart Rate Present Fetus Movement A Yes Comments +FM, doing well, check plate lets today, gbs at 36 weeks, f/u 2 weeks Flowsheet Date 11/16/2024 Kang Score Blood Edema Fundus Height Fundus Units Glucose Ketones Leukocytes Nitrite Labor Signs Protein Cervic Dilation Cervic Effacement Cervic Station Type Weight in lbs Pre/Post Dialysis Refused Weight 223.348734057811 BP Diastolic BP Location Tested BP Systolic BP Type 64 L arm 126 sitting Fetus Heart Rate Present A 140 Present Fetus Movement A Yes Comments +fm doing well f/u one week, gbs collected iol scheduled Flowsheet Date 11/21/2024 Kang Score Blood Edema Fundus Height Fundus Units Glucose Ketones Leukocytes Nitrite Labor Signs Protein Cervic Dilation Cervic Effacement Cervic Station Type Weight in lbs Pre/Post Dialysis Refused Weight 222.1966898789 BP Diastolic BP Location Tested BP Systolic BP Type 74 L arm 114 sitting Fetus Heart Rate Present A 146 Present Fetus Movement A Yes Comments +FM doing well precautions a nd education f/u one week Flowsheet Date 11/28/2024 Kang Score Blood Edema Fundus Height Fundus Units Glucose Ketones Leukocytes Nitrite Labor Signs Protein Cervic Dilation Cervic Effacement Cervic Station 2cm 50% -3 Type Weight in lbs Pre/Post Dialysis Refused Weight 222.5319901933 BP Diastolic BP Location Tested BP Systolic BP Type 88 L arm 134 sitting Fetus Heart Rate Present A 150 Present Fetus Movement A Yes Comments +FM check PLT next visit, pr ecautions and education f/u one week Flowsheet Date 12/05/2024 Kang Score Blood Edema Fundus Height Fundus Units Glucose Ketones Leukocytes Nitrite Labor Signs Protein Cervic Dilation Cervic Effacement Cervic Station 2cm 50% -3 Type Weight in lbs Pre/Post Dialysis Refused Weight 222.3539867341 BP Diastolic BP Location Tested BP Systolic BP Type 80 L arm 141 sitting Fetus Heart Rate Present Fetus Movement A Decreased Comments +Fm , less than usual plan N ST, precautions an education f/u one week Flowsheet Date 12/05/2024 Kang Score Blood Edema Fundus Height Fundus Units Glucose Ketones Leukocytes Nitrite Labor Signs Protein Cervic Dilation Cervic Effacement Cervic Station Type Weight in lbs Pre/Post Dialysis Refused BP Diastolic BP Location Tested BP Systolic BP Type Fetus Heart Rate Present Fetus Movement Comments Flowsheet Date 12/12/2024 Kang Score Blood Edema Fundus Height Fundus Units Glucose Ketones Leukocytes Nitrite Labor Signs Protein Cervic Dilation Cervic Effacement Cervic Station 4cm 70% -2 Type Weight in lbs Pre/Post Dialysis Refused 224.335355892349 BP Diastolic BP Location Tested BP Systolic BP Type 81 L arm 118 sitting Fetus Heart Rate Present A 148 Fetus Movement A Yes Comments +FM doing well, precautions and education, IOL next week f/u as scheduled Menstrual History Last Menstrual Date Menses Monthly On Bcp Conception Prior Menses Frequency Hcg Plus Date Menarche Onset Age 0103/09/2024 Delivery Information Delivery Date Delivery Type Labor Anesthesia Weeks Gestation Incision Type Labor Labor Length Hrs Delivered By Post Complications Tubal Sterilization Discharge Date Comments Discharge Information Feeding Method Contraceptive Method Maternal HG B and HCT Levels Ob Episode Information Episode Created Date Number of Fetuses Patient Bloodtype Patient rh Status Prepregnancy Weight lbs Domestic Partner Domestic Partner Phone Father Name Area Intelligence Technician Status 06/14/19 25 1 CLOSED Fetus Data First Name Last Name Admitted to NICU Weight (g) Sex Living Outcome Pediatric Complications Fetus ID Race Codes Race Delivery Type 3175.14 4 M Full Term [id number] Vaginal Delivery Colt Calculation Initial Colt Date Initial Exam Date Initial Exam Provider Initial Ultrasound Date Last Menstrual Period Date Ultra Sound Weeks Gestation 0 Eighteen To Twenty Week Colt Update Ultra Sound Date Fundal Height At Umbil Quickening Date Ultra Sound Latest Weeks Gestation Final Colt Confirmed By Final Colt Confirmed Date Final Colt Date Ultra Sound Latest Days Gestation 0 0 Menstrual History Last Menstrual Date Menses Monthly On Bcp Conception Prior Menses Frequency Hcg Plus Date Menarche Onset Age Delivery Information Delivery Date Delivery Type Labor Anesthesia Weeks Gestation Incision Type Labor Labor Length Hrs Delivered By Post Complications Tubal Sterilization Discharge Date Comments 5 40.4 at age 9 Discharge Information Feeding Method Contraceptive Method Maternal HG B and HCT Levels Ob Episode Information Episode Created Date Number of Fetuses Patient Bloodtype Patient rh Status Prepregnancy Weight lbs Domestic Partner Domestic Partner Phone Father Name Area Intelligence Technician Status 06/14/19 25 1 CLOSED Fetus Data First Name Last Name Admitted to NICU Weight (g) Sex Living Outcome Pediatric Complications Fetus ID Race Codes Race Delivery Type [phone] 3 F Full Term [id number] Vaginal Delivery Colt Calculation Initial Colt Date Initial Exam Date Initial Exam Provider Initial Ultrasound Date Last Menstrual Period Date Ultra Sound Weeks Gestation 0 Eighteen To Twenty Week Colt Update Ultra Sound Date Fundal Height At Umbil Quickening Date Ultra Sound Latest Weeks Gestation Final Colt Confirmed By Final Colt Confirmed Date Final Colt Date Ultra Sound Latest Days Gestation 0 0 Menstrual History Last Menstrual Date Menses Monthly On Bcp Conception Prior Menses Frequency Hcg Plus Date Menarche Onset Age Delivery Information Delivery Date Delivery Type Labor Anesthesia Weeks Gestation Incision Type Labor Labor Length Hrs Delivered By Post Complications Tubal Sterilization Discharge Date Comments 8 40 Discharge Information Feeding Method Contraceptive Method Maternal HG B and HCT Levels
--- OUTSIDE RECORDS SUMMARY | 2024-12-13 07:45 | XMS_ITS | Continuity of Care Document ---
Author Organization [facility] Address [address] [place] [address] Assessment Encounter Date Assessment Date Assessment LastModified by Organization Details LastModified Time 12/12/2024 12/12/2024 Patient is _39__weeks . Discussed plan. Not available 12/12/2024 10:48:29 Plan of Treatment Reminders Order Date Submit Date Provider Last Modified By Organization Details Last Modified Time Details Appointments INDUCTION 2024 05:00A M Stacy Dotson CNM Not available Not available Not available Lab None recorded. Referral None recorded. Procedures None recorded. Surgeries None recorded. Imaging None recorded. Medication Orders None recorded. Patient TargetsNo targets recorded. Patient InstructionsNo instructions recorded. Reason for Referral None Reported. Results Created Date Observation Date Name Description Value Unit Range Abnormal Flag Note LastModifiedBy Organization Detail LastModifiedTime 06/22/1906/21/2024 [UNIT Y] ANEUP LOIDY NIPT fraction 15.1% normal Not Available [facility] [address], [place], [address], 2024 02:11:11 06/22/19 25 2024 [UNIT Y] ANEUP LOIDY NIPT 22Q11.2 microdeletio n LOW RISK <1 in 10,000 normal Not Available [facility] [address], [place], [address], 2024 02:11:11 06/22/19 25 2024 [UNIT Y] ANEUP LOIDY NIPT sex chromosome aneuploidy NOT DETECT ED normal Not Available [facility] [address], [place], [address], 2024 02:11:11 06/22/19 25 2024 [UNIT Y] ANEUP LOIDY NIPT monosomy X LOW RISK <1 in 10,000 normal Not Available [facility] [address], [place], [address], 2024 02:11:11 06/22/19 25 2024 [UNIT Y] ANEUP LOIDY NIPT trisomy 13 LOW RISK <1 in 10,000 normal Not Available [facility] [address], [place], [address], 2024 02:11:11 06/22/19 25 2024 [UNIT Y] ANEUP LOIDY NIPT trisomy 18 LOW RISK <1 in 10,000 normal Not Available [facility] [address], [place], [address], 2024 02:11:11 06/22/19 25 2024 [UNIT Y] ANEUP LOIDY NIPT trisomy 21 LOW RISK <1 in 10,000 normal Not Available [facility] [address], [place], [address], 2024 02:11:11 06/22/19 25 2024 [UNIT Y] ANEUP LOIDY NIPT sex FEMALE normal Not Available [facility] [address], [place], [address], 2024 02:11:11 06/22/1906/21/2024 [UNIT Y] ANEUP LOIDY NIPT gestation SINGLE TON normal Not Available [facility] [address], [place], [address], 2024 02:11:11 06/22/19 25 2024 [UNIT Y] ANEUP BETH NIPT for detailed report, see pdf See PDF normal Not Available [facility] [address], [place], [address], 2024 02:11:11 06/22/19 25 2024 [UNIT Y] CADE Morales sickle cell disease/beta -thalassemia /hemoglobino pathies carrier screen NEGATI VE normal Not Available [facility] [address], [place], [address], 2024 18:18:29 06/22/19 25 2024 [UNIT Y] CADE Morales alpha-thalas semia carrier screen NEGATI VE normal Not Available [facility] [address], [place], [address], 2024 18:18:29 06/22/19 25 2024 [UNIT Y] CADE Morales cystic fibrosis carrier screen NEGATI VE normal Not Available [facility] [address], [place], [address], 2024 18:18:29 06/22/19 25 2024 [UNIT Y] CADE Morales spinal muscular atrophy carrier screen NEGATI VE 2 SMN1 copies , SNP not presen t normal Not Available [facility] [address], [place], [address], 2024 18:18:29 06/22/19 25 2024 [UNIT Y] CADE Morales for detailed report, see pdf See PDF normal Not Available [facility] [address], [place], [address], 2024 18:18:29 10/06/19 25 10/05/2024 CBC W/DIF F WBC 8.8 10'3/ uL 3.5-10 .5 Not Available [facility] (Lab) [address], [place], [address], 10/08/2024 02:53:23 10/06/1910/05/2024 CBC W/DIF F RBC 4.12 10'6/ uL (based on docume nted legal sex) 3.80-5 .20 Not Available [facility] (Lab) [address], [place], [address], 10/08/2024 02:53:23 10/06/19 25 10/05/2024 CBC W/DIF F HGB 12.2 g/dL (based on docume nted legal sex) 11.6-1 5.4 Not Available [facility] (Lab) [address], [place], [address], 10/08/2024 02:53:23 10/06/19 25 10/05/2024 CBC W/DIF F HCT 37.0 % (based on docume nted legal sex) 34.0-4 5.0 Not Available [facility] (Lab) [address], [place], [address], 10/08/2024 02:53:23 10/06/1910/05/2024 CBC W/DIF F MCV 89.8 fL 80.0-9 9.0 Not Available [facility] (Lab) [address], [place], [address], 10/08/2024 02:53:23 10/06/1910/05/2024 CBC W/DIF F MCH 29.6 pg 27.0-3 4.0 Not Available [facility] (Lab) [address], [place], [address], 10/08/2024 02:53:23 10/06/1910/05/2024 CBC W/DIF F MCHC 33.0 g/dL 32.0-3 5.5 Not Available [facility] (Lab) [address], [place], [address], 10/08/2024 02:53:23 10/06/19 25 10/05/2024 CBC W/DIF F RDW 12.9 % 11.0-1 5.0 Not Available [facility] (Lab) [address] [facility], [place], [address], 10/08/2024 02:53:23 10/06/19 25 10/05/2024 CBC W/DIF F plt 146 10'3/ uL 150-40 0 low Not Available [facility] (Lab) [address] [facility], [place], [address], 10/08/2024 02:53:23 10/06/19 25 10/05/2024 CBC W/DIF F MPV 11.6 fL 8.8-12 .1 Not Available [facility] (Lab) [address] [facility], [place], [address], 10/08/2024 02:53:23 10/06/19 25 10/05/2024 CBC W/DIF F NRBC's 0.0 % 0.0 Not Available [facility] (Lab) [address] [facility], [place], [address], 10/08/2024 02:53:23 10/06/19 25 10/05/2024 CBC W/DIF F absolute NRBCs 0.0 10'3/ uL no refere nce range establ ished Not Available [facility] (Lab) [address] [facility], [place], [address], 10/08/2024 02:53:23 10/06/19 25 10/05/2024 CBC W/DIF F neutrophils 74.1 % 34.0-7 3.0 high Not Available [facility] (Lab) [address] [facility], [place], [address], 10/08/2024 02:53:23 10/06/19 25 10/05/2024 CBC W/DIF F lymphocytes 22.1 % 15.0-5 0.0 Not Available [facility] (Lab) [address] [facility], [place], [address], 10/08/2024 02:53:23 10/06/1910/05/2024 CBC W/DIF F monocytes 2.1 % 1.0-15 .0 Not Available [facility] (Lab) [address] [facility], [place], [address], 10/08/2024 02:53:23 10/06/19 25 10/05/2024 CBC W/DIF F eosinophils 1.3 % 0.0-8. 0 Not Available [facility] (Lab) [address] [facility], [place], [address], 10/08/2024 02:53:23 10/06/19 25 10/05/2024 CBC W/DIF F basophils 0.2 % 0.0-2. 0 Not Available [facility] (Lab) [address] [facility], [place], [address], 10/08/2024 02:53:23 10/06/19 25 10/05/2024 CBC W/DIF F immature granulocytes 0.2 % no define d refere nce range Immat ure Granu locyt es (IG) repre sents autom ated enume ratio n of Metam yeloc ytes, Myelo cytes and Promy elocy jade when IG is < 5%. Blast s are not inclu ded in IG and repor earl separ ately if prese nt. Not Available [facility] (Lab) [address] [facility], [place], [address], 10/08/2024 02:53:23 10/06/1910/05/2024 CBC W/DIF F absolute neutrophils 6.5 10'3/ uL 1.5-8. 0 Not Available [facility] (Lab) [address] [facility], [place], [address], 10/08/2024 02:53:23 10/06/19 25 10/05/2024 CBC W/DIF F absolute lymphocytes 1.9 10'3/ uL 1.0-4. 0 Not Available [facility] (Lab) [address] [facility], [place], [address], 10/08/2024 02:53:23 10/06/1910/05/2024 CBC W/DIF F absolute monocytes 0.2 10'3/ uL 0.2-1. 0 Not Available [facility] (Lab) [address] [facility], [place], [address], 10/08/2024 02:53:23 10/06/1910/05/2024 CBC W/DIF F absolute eosinophils 0.1 10'3/ uL 0.0-0. 6 Not Available [facility] (Lab) [address] [facility], [place], [address], 10/08/2024 02:53:23 10/06/1910/05/2024 CBC W/DIF F absolute basophils 0.0 10'3/ uL 0.0-0. 3 Not Available [facility] (Lab) [address] [facility], [place], [address], 10/08/2024 02:53:23 10/06/1910/05/2024 CBC W/DIF F absolute immature granulocytes 0.0 10'3/ uL 0.00-0 .10 Refer ence range s for nonbi nary/ inter sex or unspe cifie d gende r patie nts have not been estab lishe d. Pleas e refer to the enoco wing table for range s estab lishe d for cisge nder patie nts and evalu ate in the clini bailey blanca xt of the indiv idual patie nt: https ://la jennifer book. nm.or g/gen derx Not Available [facility] (Lab) [address] [facility], [place], [address], 10/08/2024 02:53:23 10/06/1910/05/2024 LEAD, BLOOD (ADUL T/PED IATRI C) lead, whole blood <1.0 mcg/d L <3.5 See Note 1 Nuvia sis was perfo rmed by Jayashree Correa ed Plasm a Mass Spect romet ry (ICPM S) Note 1 This test was devel oped and its nuvia tical perfo rmanc e beatriz cteri stics have been deter mined by [employer] ostic s. It has not been clear ed or appro lo by the FDA. This assay has been valid ated pursu ant to the CLIA regul ation s and is used for clini bailey purpo ses. Perfo rming Organ izati on Infor matio n: Site ID: CB Name: [employer] ostic s-Tovar caty Vijay Addre ss: [address] [place] [address] Dire tor: Valentina desir Not Available [facility] (Lab) [address] [facility], [place], [address], 10/08/2024 02:53:24 11/02/1911/01/2024 CBC W/DIF F WBC 10.9 10'3/ uL 3.5-10 .5 high Not Available [facility] (Lab) [address], [place], [address], 11/02/2024 07:00:59 11/02/1911/01/2024 CBC W/DIF F RBC 4.20 10'6/ uL (based on docume nted legal sex) 3.80-5 .20 Not Available [facility] (Lab) [address] [place], [address], 11/02/2024 07:00:59 11/02/1911/01/2024 CBC W/DIF F HGB 12.4 g/dL (based on docume nted legal sex) 11.6-1 5.4 Not Available [facility] (Lab) [address], [place], [address], 11/02/2024 07:00:59 11/02/1911/01/2024 CBC W/DIF F HCT 38.3 % (based on docume nted legal sex) 34.0-4 5.0 Not Available [facility] (Lab) [address] [facility], [place], [address], 11/02/2024 07:00:59 11/02/1911/01/2024 CBC W/DIF F MCV 91.2 fL 80.0-9 9.0 Not Available [facility] (Lab) [address] [facility], [place], [address], 11/02/2024 07:00:59 11/02/19 25 11/01/2024 CBC W/DIF F MCH 29.5 pg 27.0-3 4.0 Not Available [facility] (Lab) [address] [facility], [place], [address], 11/02/2024 07:00:59 11/02/1911/01/2024 CBC W/DIF F MCHC 32.4 g/dL 32.0-3 5.5 Not Available [facility] (Lab) [address] [facility], [place], [address], 11/02/2024 07:00:59 11/02/1911/01/2024 CBC W/DIF F RDW 13.0 % 11.0-1 5.0 Not Available [facility] (Lab) [address] [facility], [place], [address], 11/02/2024 07:00:59 11/02/1911/01/2024 CBC W/DIF F plt 176 10'3/ uL 150-40 0 Not Available [facility] (Lab) [address] [facility], [place], [address], 11/02/2024 07:00:59 11/02/1911/01/2024 CBC W/DIF F MPV 11.9 fL 8.8-12 .1 Not Available [facility] (Lab) [address] [facility], [place], [address], 11/02/2024 07:00:59 11/02/1911/01/2024 CBC W/DIF F NRBC's 0.0 % 0.0 Not Available [facility] (Lab) [address] [facility], [place], [address], 11/02/2024 07:00:59 11/02/19 25 11/01/2024 CBC W/DIF F absolute NRBCs 0.0 10'3/ uL no refere nce range establ ished Not Available [facility] (Lab) [address] [facility], [place], [address], 11/02/2024 07:00:59 11/02/19 25 11/01/2024 CBC W/DIF F neutrophils 72.5 % 34.0-7 3.0 Not Available [facility] (Lab) [address] [facility], [place], [address], 11/02/2024 07:00:59 11/02/1911/01/2024 CBC W/DIF F lymphocytes 20.6 % 15.0-5 0.0 Not Available [facility] (Lab) [address] [facility], [place], [address], 11/02/2024 07:00:59 11/02/1911/01/2024 CBC W/DIF F monocytes 5.9 % 1.0-15 .0 Not Available [facility] (Lab) [address] [facility], [place], [address], 11/02/2024 07:00:59 11/02/1911/01/2024 CBC W/DIF F eosinophils 0.4 % 0.0-8. 0 Not Available [facility] (Lab) [address] [facility], [place], [address], 11/02/2024 07:00:59 11/02/1911/01/2024 CBC W/DIF F basophils 0.3 % 0.0-2. 0 Not Available [facility] (Lab) [address] [place], [address], 11/02/2024 07:00:59 11/02/1911/01/2024 CBC W/DIF F immature granulocytes 0.3 % no define d refere nce range Immat ure Granu locyt es (IG) repre sents autom ated enume ratio n of Metam yeloc ytes, Myelo cytes and Promy elocy jade when IG is < 5%. Blast s are not inclu ded in IG and repor earl separ ately if prese nt. Not Available [facility] (Lab) [address] [facility], [place], [address], 11/02/2024 07:00:59 11/02/1911/01/2024 CBC W/DIF F absolute neutrophils 7.9 10'3/ uL 1.5-8. 0 Not Available [facility] (Lab) [address] [facility], [place], [address], 11/02/2024 07:00:59 11/02/1911/01/2024 CBC W/DIF F absolute lymphocytes 2.2 10'3/ uL 1.0-4. 0 Not Available [facility] (Lab) [address] [facility], [place], [address], 11/02/2024 07:00:59 11/02/1911/01/2024 CBC W/DIF F absolute monocytes 0.6 10'3/ uL 0.2-1. 0 Not Available [facility] (Lab) [address] [facility], [place], [address], 11/02/2024 07:00:59 11/02/1911/01/2024 CBC W/DIF F absolute eosinophils 0.0 10'3/ uL 0.0-0. 6 Not Available [facility] (Lab) [address] [place], [address], 11/02/2024 07:00:59 11/02/1911/01/2024 CBC W/DIF F absolute basophils 0.0 10'3/ uL 0.0-0. 3 Not Available [facility] (Lab) [address] [facility], [place], [address], 11/02/2024 07:00:59 11/02/19 25 11/01/2024 CBC W/DIF F absolute immature granulocytes 0.0 [...] the indiv idual patie nt: https ://milan nunnand book. nm.or g/gen derx Not Available [facility] (Lab) [address], [place], [address], 11/02/2024 07:00:59 11/17/1911/16/2024 CULTU RE: GROUP B [...] t Abnor mal: No Resul ting Lab: [facility] [address] [facility] [address] Tel: CULTU RE ----- ----- ----- --- No Group B strep isola earl at 2 days (eugenio ctive broth enhan cemen t) Not Available [facility] (Lab) [address], [place], [address], 11/19/2024 15:16:24 11/22/19 25 11/21/2024 CBC W/DIF F WBC 10.2 10'3/ uL 3.5-10 .5 Not Available [facility] (Lab) [address], [place], [address], 11/22/2024 04:31:46 11/22/19 25 11/21/2024 CBC W/DIF F RBC 4.07 10'6/ uL (based on docume nted legal sex) 3.80-5 .20 Not Available [facility] (Lab) [address] [facility], [place], [address], 11/22/2024 04:31:46 11/22/19 25 11/21/2024 CBC W/DIF F HGB 12.0 g/dL (based on docume nted legal sex) 11.6-1 5.4 Not Available [facility] (Lab) [address] [facility], [place], [address], 11/22/2024 04:31:46 11/22/19 25 11/21/2024 CBC W/DIF F HCT 36.7 % (based on docume nted legal sex) 34.0-4 5.0 Not Available [facility] (Lab) [address] [facility], [place], [address], 11/22/2024 04:31:46 11/22/19 25 11/21/2024 CBC W/DIF F MCV 90.2 fL 80.0-9 9.0 Not Available [facility] (Lab) [address] [facility], [place], [address], 11/22/2024 04:31:46 11/22/19 25 11/21/2024 CBC W/DIF F MCH 29.5 pg 27.0-3 4.0 Not Available [facility] (Lab) [address] [facility], [place], [address], 11/22/2024 04:31:46 11/22/19 25 11/21/2024 CBC W/DIF F MCHC 32.7 g/dL 32.0-3 5.5 Not Available [facility] (Lab) [address] [facility], [place], [address], 11/22/2024 04:31:46 10/01/20 25 11/21/2024 CBC W/DIF F RDW 13.0 % 11.0-1 5.0 Not Available [facility] (Lab) [address], [place], [address], 11/22/2024 04:31:46 11/22/19 25 11/21/2024 CBC W/DIF F plt 173 10'3/ uL 150-40 0 Not Available [facility] (Lab) [address], [place], [address], 11/22/2024 04:31:46 11/22/19 25 11/21/2024 CBC W/DIF F MPV 12.3 fL 8.8-12 .1 high Not Available [facility] (Lab) [address], [place], [address], 11/22/2024 04:31:46 11/22/19 25 11/21/2024 CBC W/DIF F NRBC's 0.0 % 0.0 Not Available [facility] (Lab) [address], [place], [address], 11/22/2024 04:31:46 11/22/19 25 11/21/2024 CBC W/DIF F absolute NRBCs 0.0 10'3/ uL no refere nce range establ ished Not Available [facility] (Lab) [address], [place], [address], 11/22/2024 04:31:46 11/22/19 25 11/21/2024 CBC W/DIF F neutrophils 70.4 % 34.0-7 3.0 Not Available [facility] (Lab) [address] [facility], [place], [address], 11/22/2024 04:31:46 11/22/19 25 11/21/2024 CBC W/DIF F lymphocytes 22.5 % 15.0-5 0.0 Not Available [facility] (Lab) [address], [place], [address], 11/22/2024 04:31:46 11/22/19 25 11/21/2024 CBC W/DIF F monocytes 6.0 % 1.0-15 .0 Not Available [facility] (Lab) [address], [place], [address], 11/22/2024 04:31:46 11/22/19 25 11/21/2024 CBC W/DIF F eosinophils 0.5 % 0.0-8. 0 Not Available [facility] (Lab) [address], [place], [address], 11/22/2024 04:31:46 11/22/19 25 11/21/2024 CBC W/DIF F basophils 0.2 % 0.0-2. 0 Not Available [facility] (Lab) [address], [place], [address], 11/22/2024 04:31:46 11/22/19 25 11/21/2024 CBC W/DIF F immature granulocytes 0.4 % no define d refere nce range Immat ure Granu locyt es (IG) repre sents autom ated enume ratio n of Metam yeloc ytes, Myelo cytes and Promy elocy jade when IG is < 5%. Blast s are not inclu ded in IG and repor earl separ ately if prese nt. Not Available [facility] (Lab) [address] [place], [address], 11/22/2024 04:31:46 11/22/19 25 11/21/2024 CBC W/DIF F absolute neutrophils 7.2 10'3/ uL 1.5-8. 0 Not Available [facility] (Lab) [address] , [place], [address], 11/22/2024 04:31:46 11/22/19 25 11/21/2024 CBC W/DIF F absolute lymphocytes 2.3 10'3/ uL 1.0-4. 0 Not Available [facility] (Lab) [address], [place], [address], 11/22/2024 04:31:46 11/22/1911/21/2024 CBC W/DIF F absolute monocytes 0.6 10'3/ uL 0.2-1. 0 Not Available [facility] (Lab) [address], [place], [address], 11/22/2024 04:31:46 11/22/19 25 11/21/2024 CBC W/DIF F absolute eosinophils 0.1 10'3/ uL 0.0-0. 6 Not Available [facility] (Lab) [address], [place], [address], 11/22/2024 04:31:46 11/22/1911/21/2024 CBC W/DIF F absolute basophils 0.0 10'3/ uL 0.0-0. 3 Not Available [facility] (Lab) [address], [place], [address], 11/22/2024 04:31:46 11/22/1911/21/2024 CBC W/DIF F absolute immature granulocytes 0.0 10'3/ uL 0.00-0 .10 Refer ence range s for nonbi nary/ inter sex or unspe cifie d gende r patie nts have not been estab lishe d. Pleas e refer to the enoco wing table for range s estab lishe d for cisge nder patie nts and evalu ate in the clini bailey blanca xt of the indiv idual patie nt: https ://milan rodriguez book. nm.or g/gen derx Not Available [facility] (Lab) [address], [place], [address], 11/22/2024 04:31:46 12/06/1912/05/2024 CBC W/DIF F WBC 9.4 10'3/ uL 3.5-10 .5 Not Available [facility] (Lab) [address], [place], [address], 12/06/2024 04:30:16 12/06/19 25 12/05/2024 CBC W/DIF F RBC 4.21 10'6/ uL (based on docume nted legal sex) 3.80-5 .20 Not Available [facility] (Lab) [address] [facility], [place], [address], 12/06/2024 04:30:16 12/06/19 25 12/05/2024 CBC W/DIF F HGB 12.1 g/dL (based on docume nted legal sex) 11.6-1 5.4 Not Available [facility] (Lab) [address] [facility], [place], [address], 12/06/2024 04:30:16 12/06/19 25 12/05/2024 CBC W/DIF F HCT 38.3 % (based on docume nted legal sex) 34.0-4 5.0 Not Available [facility] (Lab) [address] [facility], [place], [address], 12/06/2024 04:30:16 12/06/19 25 12/05/2024 CBC W/DIF F MCV 91.0 fL 80.0-9 9.0 Not Available [facility] (Lab) [address] [facility], [place], [address], 12/06/2024 04:30:16 12/06/19 25 12/05/2024 CBC W/DIF F MCH 28.7 pg 27.0-3 4.0 Not Available [facility] (Lab) [address] [facility], [place], [address], 12/06/2024 04:30:16 12/06/19 25 12/05/2024 CBC W/DIF F MCHC 31.6 g/dL 32.0-3 5.5 low Not Available [facility] ([facility]) [address] [facility], [place], [address], 12/06/2024 04:30:16 12/06/19 25 12/05/2024 CBC W/DIF F RDW 13.0 % 11.0-1 5.0 Not Available [facility] ([facility]) [address] [facility], [place], [address], 12/06/2024 04:30:16 12/06/19 25 12/05/2024 CBC W/DIF F plt 165 10'3/ uL 150-40 0 Not Available [facility] (Lab) [address] [facility], [place], [address], 12/06/2024 04:30:16 12/06/19 25 12/05/2024 CBC W/DIF F MPV 12.0 fL 8.8-12 .1 Not Available [facility] (Lab) [address] [facility], [place], [address], 12/06/2024 04:30:16 12/06/19 25 12/05/2024 CBC W/DIF F NRBC's 0.0 % 0.0 Not Available [facility] (Lab) [address] [facility], [place], [address], 12/06/2024 04:30:16 12/06/19 25 12/05/2024 CBC W/DIF F absolute NRBCs 0.0 10'3/ uL no refere nce range establ ished Not Available [facility] (Lab) [address] [facility], [place], [address], 12/06/2024 04:30:16 12/06/19 25 12/05/2024 CBC W/DIF F neutrophils 67.7 % 34.0-7 3.0 Not Available [facility] (Lab) [address] [facility], [place], [address], 12/06/2024 04:30:16 12/06/19 25 12/05/2024 CBC W/DIF F lymphocytes 24.6 % 15.0-5 0.0 Not Available [facility] (Lab) [address] [facility], [place], [address], 12/06/2024 04:30:16 12/06/19 25 12/05/2024 CBC W/DIF F monocytes 6.6 % 1.0-15 .0 Not Available [facility] (Lab) [address] [facility], [place], [address], 12/06/2024 04:30:16 12/06/19 25 12/05/2024 CBC W/DIF F eosinophils 0.6 % 0.0-8. 0 Not Available [facility] (Lab) [address] [facility], [place], [address], 12/06/2024 04:30:16 12/06/1912/05/2024 CBC W/DIF F basophils 0.3 % 0.0-2. 0 Not Available [facility] (Lab) [address] [facility], [place], [address], 12/06/2024 04:30:16 12/06/19 25 12/05/2024 CBC W/DIF [...] separ ately if prese nt. Not Available [facility] (Lab) [address] [facility], [place], [address], 12/06/2024 04:30:16 12/06/19 25 12/05/2024 CBC W/DIF F absolute neutrophils 6.4 10'3/ uL 1.5-8. 0 Not Available [facility] (Lab) [address] [facility], [place], [address], 12/06/2024 04:30:16 12/06/19 25 12/05/2024 CBC W/DIF F absolute lymphocytes 2.3 10'3/ uL 1.0-4. 0 Not Available [facility] (Lab) [address] [facility], [place], [address], 12/06/2024 04:30:16 12/06/19 25 12/05/2024 CBC W/DIF F absolute monocytes 0.6 10'3/ uL 0.2-1. 0 Not Available [facility] (Lab) [address] [facility], [place], [address], 12/06/2024 04:30:16 12/06/19 25 12/05/2024 CBC W/DIF F absolute eosinophils 0.1 10'3/ uL 0.0-0. 6 Not Available [facility] (Lab) [address] [facility], [place], [address], 12/06/2024 04:30:16 12/06/19 25 12/05/2024 CBC W/DIF F absolute basophils 0.0 10'3/ uL 0.0-0. 3 Not Available [facility] (Lab) [address] [facility], [place], [address], 12/06/2024 04:30:16 12/06/1912/05/2024 CBC W/DIF F absolute immature granulocytes 0.0 10'3/ uL 0.00-0 .10 Refer ence range s for nonbi nary/ inter sex or unspe cifie d gende r patie nts have not been estab lishe d. Pleas e refer to the [facility] [place] for range s estab lishe d for cisge nder patie nts and evalu ate in the clini bailey blanca xt of the indiv idual patie nt: https ://milan rodriguez book. nm.or g/gen derx Not Available [facility] (Lab) [address], [place], [address], 12/06/2024 04:30:16 12/06/1912/05/2024 CMP(C OMPRE HENSI VE METAB OLIC PANEL ) sodium 138 mmol/ L 133-14 6 Not Available [facility] (Lab) [address] [facility], [place], [address], 12/06/2024 04:30:17 12/06/19 25 12/05/2024 CMP(C OMPRE HENSI VE METAB OLIC PANEL ) potassium 3.7 mmol/ L 3.5-5. 1 Not Available [facility] (Lab) [address] [facility], [place], [address], 12/06/2024 04:30:17 12/06/19 25 12/05/2024 CMP(C OMPRE HENSI VE METAB OLIC PANEL ) chloride 105 mmol/ L 98-107 Not Available [facility] (Lab) [address] [facility], [place], [address], 12/06/2024 04:30:17 12/06/19 25 12/05/2024 CMP(C OMPRE HENSI VE METAB OLIC PANEL ) carbon dioxide 23 mmol/ L 21-31 Not Available [facility] (Lab) [address] [facility], [place], [address], 12/06/2024 04:30:17 12/06/19 25 12/05/2024 CMP(C OMPRE HENSI VE METAB OLIC PANEL ) anion gap 10 mmol/ L 4-13 Not Available [facility] (Lab) [address] [facility], [place], [address], 12/06/2024 04:30:17 12/06/19 25 12/05/2024 CMP(C OMPRE HENSI VE METAB OLIC PANEL ) blood urea nitrogen 5 mg/dL 7-25 low Not Available [facility] (Lab) [address] [place], [address], 12/06/2024 04:30:17 12/06/19 25 12/05/2024 CMP(C OMPRE HENSI VE METAB OLIC PANEL ) creatinine 0.61 mg/dL 0.60-1 .30 Not Available [facility] (Lab) [address] [place], [address], 12/06/2024 04:30:17 12/06/19 25 12/05/2024 CMP(C OMPRE HENSI VE METAB OLIC PANEL ) egfrcr (CKD-epi 2020) >90 mL/mi n/1.7 3_m2 >=60 Not Available [facility] (Lab) [address] [facility], [place], [address], 12/06/2024 04:30:17 12/06/19 25 12/05/2024 CMP(C OMPRE HENSI VE METAB OLIC PANEL ) calcium 8.6 mg/dL 8.3-10 .5 Not Available [facility] (Lab) [address] [facility], [place], [address], 12/06/2024 04:30:17 12/06/19 25 12/05/2024 CMP(C OMPRE HENSI VE METAB OLIC PANEL ) glucose 63 mg/dL 70-100 low Not Available [facility] (Lab) [address] [facility], [place], [address], 12/06/2024 04:30:17 12/06/19 25 12/05/2024 CMP(C OMPRE HENSI VE METAB OLIC PANEL ) protein, total 5.8 g/dL 6.4-8. 3 low Not Available [facility] (Lab) [address] [facility], [place], [address], 12/06/2024 04:30:17 12/06/19 25 12/05/2024 CMP(C OMPRE HENSI VE METAB OLIC PANEL ) albumin 3.3 g/dL 3.5-5. 0 low Not Available [facility] (Lab) [address] [facility], [place], [address], 12/06/2024 04:30:17 12/06/19 25 12/05/2024 CMP(C OMPRE HENSI VE METAB OLIC PANEL ) ALT 9 units /L 9-43 Not Available [facility] (Lab) [address] [facility], [place], [address], 12/06/2024 04:30:17 12/06/19 25 12/05/2024 CMP(C OMPRE HENSI VE METAB OLIC PANEL ) alkaline phosphatase 151 units /L 34-104 high Not Available [facility] (Lab) [address] [facility], [place], [address], 12/06/2024 04:30:17 12/06/19 25 12/05/2024 CMP(C OMPRE HENSI VE METAB OLIC PANEL ) AST 15 units /L 13-39 Not Available [facility] (Lab) [address] [facility], [place], [address], 12/06/2024 04:30:17 12/06/19 25 12/05/2024 CMP(C OMPRE HENSI VE METAB OLIC PANEL ) bilirubin, total 0.4 mg/dL 0.2-1. 2 Not Available [facility] (Lab) [address] [facility], [place], [address], 12/06/2024 04:30:17 12/06/19 25 12/05/2024 URIC ACID uric acid 5.5 mg/dL 2.3-6. 6 Not Available [facility] (Lab) [address] [facility], [place], [address], 12/06/2024 04:30:17 12/06/19 25 12/05/2024 PROTE IN/CR EATIN INE RATIO , URINE creatinine, urine 52.2 mg/dL R-No refer ence range estab lishe d for this assay Not Available [facility] (Lab) [address] [place], [address], 12/06/2024 05:07:25 12/06/19 25 12/05/2024 PROTE IN/CR EATIN INE RATIO , URINE protein, urine 7 mg/dL R-No refer ence range estab lishe d for this assay Not Available [facility] (Lab) [address] [place], [address], 12/06/2024 05:07:25 12/06/19 25 12/05/2024 PROTE IN/CR [...] fican t prote inuri a. Not Available [facility] (Lab) [address], [place], [address], 12/06/2024 05:07:25 07/27/19 25 07/26/2024 US, obste tric, 2nd or 3rd trime ster No observ ation record ed. [email or web address] [facility] [address], [place], [address], 07/26/2024 18:25:50 07/27/19 25 07/26/2024 US, obste tric, follo w-up No observ ation record ed. [email or web address] [address] [facility], [place], [address], 07/31/2024 13:06:41 07/28/19 25 05/09/2024 US, obste tric, follo w-up No observ ation record ed. [email or web address] Not Available 07/27 18:17:22 08/23/19 25 08/22/2024 US, obste tric, follo w-up No observ ation record ed. [email or web address] [facility] [address], [place], [address], 08/22/2024 11:57:14 08/23/19 25 08/22/2024 US, obste tric, follo w-up No observ ation record ed. [email or web address] [address] [facility], [place], [address], 08/27/2024 21:31:28 10/20/19 25 10/19/2024 US, obste tric, follo w-up No observ ation record ed. [email or web address] [facility] [address], [place], [address], 10/19/2024 13:46:02 10/20/19 25 10/19/2024 US, obste tric, follo w-up No observ ation record ed. [email or web address] [address], [place], [address], 10/24/2024 12:03:03 12/06/19 25 12/05/2024 non-s tress test No observ ation record ed. [email or web address] [facility] [address], [place], [address], 12/05/2024 11:45:15 12/06/19 non-s tress test No observ ation record ed. [email or web address] [facility] [address], [place], [address], 12/05/2024 12:17:27 Result Notes None recorded. Problems Name Problem SNOMED Code Status Onset Date Resolution Date Notes Provider Name and Address Organization Details Recorded Time Herpes simplex type 1 infection 838507765 Active 06/12 blood work neg HSV Jazzmine Pereyra [facility], [facility] 5 13:35:11 Mixed anxiety and depressive disorder 281236781 Active 2024 Diandra rolon, [facility] 5 08:56:47 10654863 Active 2024 Diandra Harper [facility], [facility] 5 08:56:16 Herpes simplex type 1 infection 261161679 Active 06/12 blood work neg HSV Jazzmine Pereyra [facility], [facility] 5 13:35:11 Mixed anxiety and depressive disorder 580732993 Active 2024 Diandra rolon, [facility] 5 08:56:47 Thrombocytope nelson disorder 625926798 Active 2024 PLT 148 rpt 4wks Jazzmine Pereyra [facility] 5 13:53:57 Thrombocytope nelson disorder 873891672 Active 2024 PLT 148 rpt 4wks Jazzmnie Pereyra [facility] 5 13:53:56 Problem Notes None recorded. Procedures Surgical History Date Name Laterality Status Provider Name and Address Organization Details Recorded Time 4 Date of Last Pap Smear completed Diandra Harper [facility] 06/12/2024 13:16:14 0 extraction of wisdom tooth completed Diandra Stewarttz [facility] 06/13/2024 08:54:53 Imaging Results None recorded. Procedure Notes None recorded. Medical Equipment None Reported. Allergies Allergen ID Allergen Name Allergen Category Reaction Reaction Severity Criticality Documentation Date Start Date Code Code System Note Provider Name and Address Organization Details Recorded Time 26294 Substance with sulfonami de structure and antibacte rial mechanism of action (substanc e) medicatio n rash moderate Not available 06/12/2024 44281 8003 SNOMED Diandraterence Harper [facility] 5 13:16:14 Medications Name Sig Start Date Stop [...] No t Available Vitals Date Recorded Body weight Systolic And Diastolic Provider Name and Address Organization Details Last Updated DateTime 12/12/2024 791966.97501 g 118/81 mm[Hg] Imelda Mello [facility] 12/12/2024 10:48:32 Social History Question Answer Notes LastModified by Organizat ion Details LastModified Time Tobacco Smoking Status Former Smoker Diandra Harper gonzales, [facility] 06/13/2024 08:54:00 Do You Have An Advance Directive? No [email or web address] Information not available 06/12/2024 If You Are , What Was Your Level Of Alcohol Consumption Prior To ? Occasional [email or web address] Information not available 06/13/2024 Are You Blind Or Do You Have Difficulty Seeing? No [email or web address] Information not available 06/12/2024 What Is Your Level Of Caffeine Consumption? Occasional [email or web address] Information not available 06/12/2024 How Much Tobacco Do You Chew? None Information not available 06/12/2024 In The 14 Days Before Symptom Onset, Have You Had Close Contact With A Laboratory-confir med COVID-19 While That Case Was Ill? No [email or web address] Information not available 06/12/2024 In The 14 Days Before Symptom Onset, Have You Had Close Contact With A Person Who Is Under Investigation For COVID-19 While That Person Was Ill? No [email or web address] Information not available 06/12/2024 Have You Been To An Area Known To Be High Risk For COVID-19? No [email or web address] Information not available 06/12/2024 Are You Deaf Or Do You Have Serious Difficulty Hearing? No [email or web address] Information not available 06/12/2024 What Type Of Diet Are You Following? REGULAR [email or web address] Information not available 06/12/2024 What Is The Highest Grade Or Level Of School You Have Completed Or The Highest Degree You Have Received? [id number] Information not available 06/12/2024 Are There Any Guns Present In Your Home? Yes [email or web address] Information not available 06/12/2024 Do You Use Protection During Sex? No [email or web address] Information not available 06/12/2024 Do You Use Your Seat Belt Or Car Seat Routinely? Yes [email or web address] Information not available 06/12/2024 Do You Have Smoke And Carbon Monoxide Detectors In Your Home? Yes [email or web address] Information not available 06/12/2024 How Much Tobacco Do You Smoke? No [email or web address] Information not available 06/12/2024 Do You Use Sunscreen Routinely? Yes [email or web address] Information not available 06/12/2024 Have You Used IV Drugs? No [email or web address] Information not available 06/12/2024 Do You Have Difficulty Walking Or Climbing Stairs? No [email or web address] Information not available 06/13/2024 Sex: Unknown Functional Status Question Answer Note LastModified by Organizat ion Details LastModified Time Do you use any illicit or recreational drugs? No marijauna [email or web address] Information not available 06/13/2024 Do you or have you ever used any other forms of tobacco or nicotine? Yes [email or web address] Information not available 06/13/2024 What is your level of alcohol consumption? None [email or web address] Information not available 06/12/2024 Are you able to walk independently without assistance or assistive devices? YESWOREST [email or web address] Information not available 06/12/2024 Are you able to care for yourself independently? 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 No [email or web address] Information not available 06/13/2024 Do you or have you ever used e-cigarettes or vape? Former user of electronic cigarettes [email or web address] Information not available 06/13/2024 What is your exercise level? Moderate [email or web address] Information not available 06/12/2024 Mental Status Question Answer Note LastModified by Organization D etails LastModified Time Do you feel stressed (tense, restless, nervous, or anxious, or unable to sleep at night)? [id number] [email or web address] Information not available 06/12/2024 Family History Relationship Description Onset Age of this Age Resolved Age Notes LastModified by Organization Details LastModified Time Mother Asthma [email or web address] Not available 06/12/2024 13:16:14 Maternal Uncle Seizure disorder Not available 08/06 20:22:41 Medical History Condition Response Allergies (Food, seasonal, environmental ) Y Other N Breast Cancer N Drug/Latex Allergies/Reactions N Blood Transfusion N Dermatologic Disorders N Lung Disease N Defects or Inherited Disease N Breast Problem N Gestational Diabetes N Hematologic disorders N Anesthesia Complications N History of STI Y Deep Vein Thrombosis N Polycystic ovary syndrome N Anxiety Disorder Y Autoimmune disease N Arthritis N Infertility N Polyps N Acid Reflux (GERD) N History of abnormal pap N Cancer N Stroke N Varicosities N Neurologic/Epilepsy N Endometriosis N High Cholesterol N Headaches N Fibromyalgia N Kidney Disease N Heart Problems N Kidney or Bladder Problems N Thyroid Problems N GI Problems N Eating Disorder N Anemia N Art (IVF or FET) N Psychiatric Illness N Ovarian Cancer N Diabetes N Pulmonary (TB, Asthma) N Hepatitis/Liver Disease N No Past Medical History N Eczema N Urinary Tract Infection N Abuse/Domestic Violence N Asthma Y Trauma/Violence N Depression/ depression Y Heart Disease N Pre-Eclampsia N Hypertension N Osteoporosis N Thrombophilias N Gynecological History Statement/Question Response Abnormal Pap [...] ICD10 Code Diagnosis IMO Codes Diagnosis Note [id number] Stacy Dotson CNM [facility] [address] [address] 11/16/2024 09:42:43 11/16/2024 10:36:56 Gestation period, 35 weeks 59090795 Z3A.35 9054818 [id number] Stacy Dotson CNM [facility] [address] [address] 11/21/2024 11:05:47 11/21/2024 14:06:10 Gestation period, 36 weeks 65885099 Z3A.36 6554562 [id number] Stacy Dotson CNM [facility] [address],[place] [address] 11/28/2024 10:40:48 11/28/2024 13:53:50 Gestation period, 37 weeks 85645963 Z3A.37 6213072 [id number] [facility] [address],[place] [address] 12/05/2024 10:41:20 12/05/2024 11:08:52 Gestation period, 38 weeks 53086664 Z3A.38 1201249 [id number] [facility] [address] [address] 12/05/2024 10:56:56 12/05/2024 11:37:44 Reduced movement 235791613 O36.8130 [id number] Stacy Dotson CNM [facility] [address],[place] [address] 12/12/2024 10:37:17 12/12/2024 11:17:25 Gestation period, 39 weeks 56623324 Z3A.39 [id number] Health Concerns Section Related Observation LastModified by Organization Detai ls LastModified Time None Recorded Concern Status LastModified by Organization Details LastModified Time None Recorded Payers Encounter Date Sequence Insurance Name Policy Number Policy Ruiz Covered Member ID Ruiz Member ID Guarantor Name 12/12/2024 1 [facility] [id number] Milagros Snow [id number] Milagros Snow 12/12/2024 2 [facility] [id number] Milagros Snow [id number] Milagros Snow Notes Date Note Type Note Provider Name and Address Organization Details Recorded Time 12/12/2024 text/html Generic HPI TemplateReported by Patient [address], [place], [address], [facility] 12/12/2024 10:55:37 OBGyn Episode Ob Episode Information Episode Created Date Number of Fetuses Patient Bloodtype Patient rh Status Prepregnancy Weight lbs Domestic Partner Domestic Partner Phone Father Name Cutting Inspector Status 06/14/19 25 1 O Negative 205 Sonido Gibson son OPEN Fetus Data First Name Last Name Admitted to NICU Weight (g) Sex Living Outcome Pediatric Complications Fetus ID Race Codes Race Delivery Type [id number] Problems Problem Notes 2014 - at age 9 from heart attack Problem Name Start Date End Date Resolution Snomed Code Not e Herpes simplex type 1 infection 06/13/2024 [id number] 06/12 blood work neg HSV Thrombocytopenic disorder 06/18/2024 302 640899 PLT 148 rpt 4wks Mixed anxiety and depressive disorder 06/13/2024 777188534 Colt Calculation Initial Colt Date Initial Exam Date Initial Exam Provider Initial Ultrasound Date Last Menstrual Period Date Ultra Sound Weeks Gestation 12/14/2024 06/13/2024 [email or web address] 06/12/2024 03/09/2024 14 Eighteen To Twenty Week Colt Update Ultra Sound Date Fundal Height At Umbil Quickening Date Ultra Sound Latest Weeks Gestation Final Colt Confirmed By Final Colt Confirmed Date Final Colt Date Ultra Sound Latest Days Gestation 0 [email or web address] 07/27/2024 12/16/19 25 0 Pre- Flowsheet Flowsheet Date 06/12/2024 Kang Score Blood Edema Fundus Height Fundus Units Glucose Ketones Leukocytes Nitrite Labor Signs Protein Cervic Dilation Cervic Effacement Cervic Station neg none none trace Type Weight in lbs Pre/Post Dialysis Refused 205.430873187092 BP Diastolic BP Location Tested BP Systolic BP Type 83 132 Fetus Heart Rate Present Fetus Movement A No Comments Patient states that is havin g some nausea. Flowsheet Date 07/04/2024 Kang Score Blood Edema Fundus Height Fundus Units Glucose Ketones Leukocytes Nitrite Labor Signs Protein Cervic Dilation Cervic Effacement Cervic Station neg trace Type Weight in lbs Pre/Post Dialysis Refused 208.679769194067 BP Diastolic BP Location Tested BP Systolic BP Type 77 117 Fetus Heart Rate Present Fetus Movement A Yes Comments Patient has had some swellin g. Flowsheet Date 07/06/2024 Kang Score Blood Edema Fundus Height Fundus Units Glucose Ketones Leukocytes Nitrite Labor Signs Protein Cervic Dilation Cervic Effacement Cervic Station trace Type Weight in lbs Pre/Post Dialysis Refused Weight 208.976118455626 BP Diastolic BP Location Tested BP Systolic [...] Weight in lbs Pre/Post Dialysis Refused Weight 211.771533737873 BP Diastolic BP Location Tested BP Systolic [...] Weight in lbs Pre/Post Dialysis Refused Weight 214.157038297224 BP Diastolic BP Location Tested BP Systolic [...] Weight in lbs Pre/Post Dialysis Refused Weight 218.293878664587 BP Diastolic BP Location Tested BP Systolic [...] Weight in lbs Pre/Post Dialysis Refused Weight 220.432565808358 BP Diastolic BP Location Tested BP Systolic [...] Weight in lbs Pre/Post Dialysis Refused Weight 222.5744551989 BP Diastolic BP Location Tested BP Systolic [...] Weight in lbs Pre/Post Dialysis Refused Weight 217.481718801309 BP Diastolic BP Location Tested BP Systolic [...] Weight in lbs Pre/Post Dialysis Refused Weight 223.108592568159 BP Diastolic BP Location Tested BP Systolic [...] Weight in lbs Pre/Post Dialysis Refused Weight 222.7959372921 BP Diastolic BP Location Tested BP Systolic [...] Weight in lbs Pre/Post Dialysis Refused Weight 222.3465576979 BP Diastolic BP Location Tested BP Systolic [...] Weight in lbs Pre/Post Dialysis Refused Weight 222.7177130307 BP Diastolic BP Location Tested BP Systolic [...] Type Weight in lbs Pre/Post Dialysis Refused 224.025122363699 BP Diastolic BP Location Tested BP Systolic [...] Contraceptive Method Maternal HG B and HCT Levels"
[2024-12-13 08:02] LABS: Hematocrit 39.6 % (37.0-47.0); Hemoglobin 13.4 g/dL (12.0-15.0); Immature Granulocyte Percent A 0.3 % (0-0.5); Lymphocytes Absolute Auto 2.60 K/mm3 (0.9-3.2); Mean Corpuscular HGB Conc 33.8 g/dl (32-36); Mean Corpuscular Hemoglobin 29.5 pg (26-34); Mean Corpuscular Volume 87.0 fl (80-100); Nucleated Red Blood Cells Absolute Auto 0.000 K/mm3 (0.0-0.012); Nucleated Red Blood Cells Perc 0.0 % (0.0-0.2); Platelet Count Result 172 k/mm3 (150-375); Red Blood Count 4.55 M/mm3 (4.2-5.4); White Blood Count 11.9 K/mm3 (4.5-10.0)
[2024-12-13] MEDS: LACTATED RINGERS 1,000 ML 125 ML IV CONT ×2 (08:08→09:44)
--- NOTE | 2024-12-13 08:20 | LDADM ---
This patient, Milagros Snow, was admitted to Labor/Delivery/Recovery 105 on 12/13/24 at 07:29. Plans for labor, pain management and were discussed with patient. Patient/family oriented to hospital policies and general routines including ID bracelet, bed and alarms, visiting hours, pain management, procedures, bathroom and other care routines, personal items, smoking policy, room service/diet and guest tray routines, infant security routines, and visiting hours. Patient/Family are encouraged to report perceived risks to care and to ask questions if they do not understand what they are told or what they should do. See OBIX for further documentation.
--- NOTE | 2024-12-13 08:34 | WPDOBADMIT ---
Obstetrics - Admit Note Admission Note: record reviewed. No pertinent additions to the history and/or any subsequent changes in the physical findings that are not consistent with the expected course of the were found. Additions to the history and/or subsequent changes in the physical findings follow. Admit in labor, SVE 5-6/80/-2 AROM large amount of meconium fluid, anticipate vaginal delivery
[2024-12-13 08:52] LABS: Syphilis IgG/IgM Antibody Non-Reactive (Nonreactive)
[2024-12-13] MEDS: OXYTOCIN 30 UNITS/NS 500 ML 30 UNITS/500 ML BAG 999 UNITS IV CONT (10:48)
--- NOTE | 2024-12-13 10:57 | PM.OBPRVD ---
OB - Vaginal Delivery Note Procedure Delivery date: 12/13/24 Induction method: None Delivery augmentation: Rupture of Membranes and Pitocin Delivery monitor: External FHT and External Uterine Route of delivery: Episiotomy description: None Laceration Description: None Specimen: Yes Quantitative Blood Loss (ml): 75 Anesthesia type: Epidural Disposition: Floor Complications: No immediate complications Baby Date of : 12/13/24 Time of : 10:46 Gestational Age by Date: 39 gender: Female Weight (pounds): 8 Weight (ounces): 5 presentation: vertex position: Left Occiput Anterior Placenta delivery description: Spontaneous Cord Vessel Description: 3 Vessels score one minute: 8 score five minutes: 9 Narrative: 30 sec delayed cord clamping, thick meconiun, baby to warmer
[2024-12-13] MEDS: OXYTOCIN 30 UNITS/NS 500 ML 30 UNITS/500 ML BAG 125 UNITS IV CONT (11:29)
--- NOTE | 2024-12-13 11:43 | S_PTH ---
PATIENT: Milagros Snow LOC: [facility] U#:[id number] AGE/SX: 34/F ROOM: 291 RE12/13/[address]: Vik Damian MD : 1990 BED: 00 DIS: 12/14/2024 SPEC #: [id number] RECD: 12/13/24 13:16 STATUS: FUNMI REOliver #: [id number] MAGGIE: 12/13/24 11:[address]: Stacy Dotson DEPT: [facility] Surgical RECD BY: Ruth Blanco ENTERED: 12/13/24 13:16 SP TYPE: Surgical OTHR DR: MD Rah Altamirano, PA Tissues: A - Placenta Procedures: Hematoxylin and Eosin Stain Gross and Microscopic Level 5
[2024-12-13] MEDS: LORATADINE 10 MG TABLET PO (12:16)
[2024-12-13] MEDS: WITCH HAZEL 40 PADS 1 PAD TOPICAL (13:23)
--- NOTE | 2024-12-13 13:30 | OBPPTRN ---
Patient transferred to post room # 291 via wheelchair. Support person present. Oriented to unit, room, information board, rooming in, admission packet and security measures. Patient verbalizes understanding.
[2024-12-13] MEDS: ACETAMINOPHEN 325 MG TABLET 650 MG PO (19:42)
[2024-12-14 04:59] LABS: Hematocrit 36.1 % (37.0-47.0); Hemoglobin 12.2 g/dL (12.0-15.0)
[2024-12-14 07:35] VITALS: BP 109/71; PULSE 79; RESP 16; TEMP 36.9; O2SAT 98
--- NOTE | 2024-12-14 07:36 | P.PNOB_ITS ---
OB - PN: Subj Subjective Date/time seen: 12/14/24 07:36 Interval history: pp day 1 doing well desires d/c home OB - PN: Obj Data Labs 12/14/24 04:08 Labs: Laboratory Results - last 24 hr 12/13/24 12/14/24 07:54 04:08 WBC 11.9 H RBC 4.55 Hgb 13.4 12.2 Hct 39.6 36.1 L MCV 87.0 MCH 29.5 MCHC 33.8 RDW 12.6 Plt Count 172 MPV 11.1 H Immature Gran % (Auto) 0.3 Neut % (Auto) 70.8 Lymph % (Auto) 21.8 [place] % (Auto) 6.4 Eos % (Auto) 0.4 Baso % (Auto) 0.3 Lymph # (Auto) 2.60 [place] # (Auto) 0.8 H Eos # (Auto) 0.1 Baso # (Auto) 0.0 Abs Immat Gran (auto) 0.03 Absolute Neuts (auto) 8.4 H Absolute Nucleated RBC 0.000 Nucleated RBC % 0.0 Syphilis IgG/IgM Ab Non-reactive Blood Type O Negative O Negative Antibody Screen Positive TNP Antibody Identification Passive Due to RH Imm Glob Antigen Identification TNP AILEEN, IgG Interpret TNP AILEEN, Poly Interpret Negative AILEEN, Complement Interp TNP Baby's Blood Type O pos Baby's AILEEN Positive OB - PN A/P Plan day: 1 Plan: routine care and discharge home Time Spent With Patient Time: Total time spent is greater than 50% in coordination of care (as documented) at patient's floor/unit and/or counseling patient: Review of Systems 2 Review of Systems: All systems reviewed & are unremarkable except as noted in HPI and below Exam 2 Const: General: cooperative, healthy appearing and comfortable Chest: Chest palpation & inspection: normal inspection of the chest Resp: Effort & Inspection: normal respiratory effort Cardio: Rate: regular rate GI: Other: soft Skin: General skin exam: normal color Extrem: General: normal to inspection Psych: Appearance: grossly normal
--- NOTE | 2024-12-14 07:38 | P.DS_ITS ---
DS: Admitting Diagnosis Discharge Date 12/14/24 Admitting Diagnosis labor DS: Discharge Diagnosis Discharge Diagnosis (1) Vaginal delivery: Code(s): O80 - Encounter for full-term uncomplicated delivery Status: Acute OB - DS: Summary OB Procedures : None OB Procedures Intrapartum: Spontaneous Vag Delivery OB Procedures: : None Peripartum Data Laceration Description: None Episiotomy description: None Time Spent with Patient Time attestation: Total time spent providing and/or coordinating discharge services: DS: Data Data Completed and Pending Pending studies at discharge: Pending at discharge 12/13/24 11:43 Surgical [PTH] Routine Labs on day of discharge: Labs from last 24 hours 12/14/24 12/13/24 04:08 07:54 WBC 11.9 H RBC 4.55 Hgb 12.2 13.4 Hct 36.1 L 39.6 MCV 87.0 MCH 29.5 MCHC 33.8 RDW 12.6 Plt Count 172 MPV 11.1 H Immature Gran % (Auto) 0.3 Neut % (Auto) 70.8 Lymph % (Auto) 21.8 [place] % (Auto) 6.4 Eos % (Auto) 0.4 Baso % (Auto) 0.3 Lymph # (Auto) 2.60 [place] # (Auto) 0.8 H Eos # (Auto) 0.1 Baso # (Auto) 0.0 Abs Immat Gran (auto) 0.03 Absolute Neuts (auto) 8.4 H Absolute Nucleated RBC 0.000 Nucleated RBC % 0.0 Syphilis IgG/IgM Ab Non-reactive Blood Type O Negative O Negative Antibody Screen TNP Positive Antibody Identification Passive Due to RH Imm Glob Antigen Identification TNP AILEEN, IgG Interpret TNP AILEEN, Poly Interpret Negative AILEEN, Complement Interp TNP Screen Pending Baby's Blood Type O pos Baby's AILEEN Positive Doses of RhIg Required Pending Discharge Plan Discharge Attending physician on discharge: Vik Damian Consulting providers: Stacy Dotson Discharging Clinician: Stacy Dotson Patient Disposition: Home Activity: pelvic rest Diet: regular Patient Instructions: Antibiotic Form Patient Language: Y[place] Stand Alone Forms: General Discharge Information Follow-up/Referrals: Stacy Dotson CNM [Certified Nurse Graphics Coordinator, [employer]] - 4 Weeks Discharge Medications: Continued PNV no.[id number]-ferrous fumarate-FA [] 28 mg iron- 800 mcg tablet 1 tablet PO DAILY Date of admission: 12/13/24 07:29 Primary Care Provider: ShankarRah Admitting Provider: Vik Damian Attending physician on admission: Vik Damian Condition: Stable
[2024-12-14] MEDS: ACETAMINOPHEN 325 MG TABLET 650 MG PO (07:55)
[2024-12-14] MEDS: RHO(D) IMMUNE GLOBULIN 300 MCG/2 ML SYRINGE IM (10:55)
[2024-12-15 08:19] VITALS: BP 129/89; PULSE 68; RESP 18; TEMP 36.6; O2SAT 100
== END 2024-12-14 12:41 | disposition home or self-care (01) | DRG 807 ==
LOC: ANHLDR 09:19 → ANHOB2 13:29
PROVIDERS: Advanced Practice Midwife; Admitting Provider Obstetrics & Gynecology; PCP Physician Assistant; Visit Provider Obstetrics & Gynecology
DX: O77.0 Labor and delivery complicated by meconium in amniotic fluid (principal); Z37.0 Single live birth; Z3A.39 39 weeks gestation of pregnancy
CPT/HCPCS: 36415; 85014; 85018; 85025; 85461; 86593; 86850; 86880; 86900; 86901; 88307; 90384; A9270; J2590; J2790; J2795; J7120